=== PATIENT | female | born 1945 | race Caucasian/White ===

== ENCOUNTER → 2021-04-07 11:16 | Outpatient (CLI) | payer MEDICARE, SELFPAY ==
--- NOTE | ~2021-04-07 | XR_ITS ---
EXAMINATION: XR chest 2V EXAM DATE: 04/07/2021 11:35 INDICATION: R06.02 - Shortness of breath x 1 mo; hx of HTN. TECHNIQUE: Frontal and lateral projections of the chest obtained and reviewed. There is no prior mark dy for comparison. FINDINGS: There is moderate chronic hyperinflation. No confluent consolidation, pneumothorax or pleu ral effusion suspected. Cardiomediastinal silhouette is normal. There are mild bony degenerative changes. IMPRESSION: Mild hyperinflation. Reviewed, dictated and finalized at location A. IMPRESSION: Mild hyperinflation.
== END ==
PROVIDERS: PCP Family Medicine; Visit Provider Family Medicine
DX: R06.02 Shortness of breath (principal); R91.8 Other nonspecific abnormal finding of lung field
CPT/HCPCS: 71046

== ENCOUNTER 2021-06-06 00:18 | Day surgery (SDC) | payer MEDICARE, SELFPAY ==
[2021-05-20 08:40] VITALS: BMI 39.2
--- NOTE | 2021-06-01 17:18 | PM.HPGS ---
History of Present Illness History of Present Illness Consent: Risks, benefits, and alternatives have been discussed and questions answered. Patient agrees to proceed with procedure. Chief complaint: melena Narrative: Kayla Barbosa is a 75 year old female referred for colon cancer screening. is stool Hemoccult was done that was positive Review of Systems Review of Systems: All systems reviewed & are unremarkable except as noted in HPI and below PMFSH Past Medical History Medical History Bleeding hemorrhoid Body mass index (BMI) 40.0-44.9, adult Body mass index 45.0-49.9, adult Morbid (severe) obesity due to excess calories Other chronic pain Surgical History Surgical History H/O thyroidectomy History of total knee arthroplasty Family History Family History Sibling Family history of suicide Family history of type 2 diabetes mellitus Family history of renal failure Patient's sister is , Onset Age: 65 Patient's brother is Patient's brother is in good health Father Family history of chronic obstructive pulmonary disease Mother Family history of malignant neoplasm of ovary Other Diabetes mellitus Family history of arthritis Family history of blood dyscrasia Family history of cardiovascular disease Family history of kidney disease Family history of malignant neoplasm Hypertension Social History Social History Smoking status: Never smoker Second hand tobacco smoke exposure: No Alcohol intake: never Living arrangements: alone Spiritual care concerns: No Meds Home Medications and Allergies Home Medications Medication Instructions Recorded Confirmed Type diclofenac sodium 1 % topical gel See Rx Instructions .ROUTE 02/02/20 05/20/21 Rx .COMPLEX #100 gm losartan 100 mg tablet 100 mg PO DAILY #90 tablet 06/16/20 05/20/21 Rx triamterene 37.5 1 tablet PO QAM #90 tablet 06/16/20 05/20/21 Rx mg-hydrochlorothiazide 25 mg tablet mometasone 50 mcg/actuation nasal 2 spray NASAL DAILY #51 gm 12/13/20 05/20/21 Rx spray simvastatin 40 mg tablet 40 mg PO DAILY #90 tablet 01/04/21 05/20/21 Rx cetirizine 10 mg tablet 10 mg PO DAILY PRN #90 tablet 03/10/21 05/20/21 Rx levothyroxine 137 mcg tablet 137 mcg PO DAILY #90 tablet 04/22/21 05/20/21 Rx ascorbic acid (vitamin C) 500 mg PO DAILY 05/20/21 05/20/21 History lansoprazole 30 mg PO DAILY 05/20/21 05/20/21 History multivit with min-folic acid 1 tablet PO DAILY 05/20/21 05/20/21 History [Adult One Daily Multivitamin] vitamin B complex 1 tablet PO DAILY 05/20/21 05/20/21 History tramadol 50 mg tablet 50 mg PO Q6H PRN #60 tablet 05/24/21 Rx duloxetine 30 mg capsule,delayed 30 mg PO DAILY #30 cap 05/26/21 Rx release Allergies Allergy/AdvReac Type Severity Reaction Status Date / Time CJ Inhibitors AdvReac Intermediate cough Verified 06/06/21 08:15 cortisone AdvReac Mild hot flush Verified 06/06/21 08:15 prednisone AdvReac Mild Agitated Verified 06/06/21 08:15 Exam Const: General: alert Orientation/consciousness: patient oriented x3 Resp: Auscultation: clear to auscultation bilaterally Cardio: Rhythm: regular rhythm GI: GI Palp: Yes Soft to palpation and No Tenderness to palpation present (GI) Neuro: General: patient oriented x3 Assessment and Plan Assessment and plan (1) Colon cancer screening: Code(s): Z12.11 - Encounter for screening for malignant neoplasm of colon Status: Acute Assessment and Plan: Colonoscopy with possible biopsy or polypectomy or cautery or injection of substances.
[2021-06-06 08:18] VITALS: BP 150/60; PULSE 89; RESP 20; TEMP 36.6; O2SAT 98
--- NOTE | 2021-06-06 08:24 | WPDANESEPPF ---
Anes - Initial Pre Proc Eval Procedure: Operation Date: 06/06/21 09:00 Proposed Procedures p Colonoscopy - Julius Bliss MD Date/Time: 06/06/21 08:24 Surgeon: Julius Bliss MD Pre Op Diagnosis: melena Patient Data Age: 75 Gender: F Height: 1.65 m Weight: 107.2 kg Last Vital Signs Temp 36.6 C 06/06/21 08:18 Pulse 89 06/06/21 08:18 Resp 20 06/06/21 08:18 BP 150/60 H 06/06/21 08:18 Pulse Ox 98 06/06/21 08:18 Allergies Allergy/AdvReac Type Severity Reaction Status Date / Time CJ Inhibitors AdvReac Intermediate cough Verified 06/06/21 08:15 cortisone AdvReac Mild hot flush Verified 06/06/21 08:15 prednisone AdvReac Mild Agitated Verified 06/06/21 08:15 Home Medications Medication Instructions Recorded Confirmed Type diclofenac sodium 1 % topical gel See Rx Instructions .ROUTE 02/02/20 05/20/21 Rx .COMPLEX #100 gm losartan 100 mg tablet 100 mg PO DAILY #90 tablet 06/16/20 05/20/21 Rx triamterene 37.5 1 tablet PO QAM #90 tablet 06/16/20 05/20/21 Rx mg-hydrochlorothiazide 25 mg tablet mometasone 50 mcg/actuation nasal 2 spray NASAL DAILY #51 gm 12/13/20 05/20/21 Rx spray simvastatin 40 mg tablet 40 mg PO DAILY #90 tablet 01/04/21 05/20/21 Rx cetirizine 10 mg tablet 10 mg PO DAILY PRN #90 tablet 03/10/21 05/20/21 Rx levothyroxine 137 mcg tablet 137 mcg PO DAILY #90 tablet 04/22/21 05/20/21 Rx ascorbic acid (vitamin C) 500 mg PO DAILY 05/20/21 05/20/21 History lansoprazole 30 mg PO DAILY 05/20/21 05/20/21 History multivit with min-folic acid 1 tablet PO DAILY 05/20/21 05/20/21 History [Adult One Daily Multivitamin] vitamin B complex 1 tablet PO DAILY 05/20/21 05/20/21 History tramadol 50 mg tablet 50 mg PO Q6H PRN #60 tablet 05/24/21 Rx duloxetine 30 mg capsule,delayed 30 mg PO DAILY #30 cap 05/26/21 Rx release Patient hx anesthesia problems: none Family hx anesthesia problems: none Results Review: All pre-operative results and documents have been reviewed as part of the pre-operative evaluation. [facility] Past Medical History Medical History (Updated 06/01/21 @ 17:19 by Julius Bliss MD) Bleeding hemorrhoid Body mass index (BMI) 40.0-44.9, adult Body mass index 45.0-49.9, adult Morbid (severe) obesity due to excess calories Other chronic pain Surgical History Surgical History (Updated 06/06/21 @ 08:25 by Matty Nick MD) H/O thyroidectomy History of total knee arthroplasty Family History Family History Sibling Family history of suicide Family history of type 2 diabetes mellitus Family history of renal failure Patient's sister is , Onset Age: 65 Patient's brother is Patient's brother is in good health Father Family history of chronic obstructive pulmonary disease Mother Family history of malignant neoplasm of ovary Other Diabetes mellitus Family history of arthritis Family history of blood dyscrasia Family history of cardiovascular disease Family history of kidney disease Family history of malignant neoplasm Hypertension Social History Social History Smoking status: Never smoker Second hand tobacco smoke exposure: No Alcohol intake: never Living arrangements: alone Spiritual care concerns: No Anes - Eval Final PreProcedure Day of Procedure 06/06/21 08:24 Patient weight: obese Heart: regular rate and rhythm Lungs: clear to auscultation Airway: Mallampati scale class II Neurological: alert and oriented Last oral intake: >/= 8 hours ASA classification: III Emergent: no Anesthetic plan: proceed Anesthesia type and monitoring: general GIVS and standard monitoring Results Review: All pre-operative results and documents have been reviewed as part of the pre-operative evaluation. Informed Consent: The patient's anesthetic plan and its attendant risks and benefits were discussed with the blanca
[2021-06-06] MEDS: LACTATED RINGERS 1,000 ML 150 ML IV CONT (08:31)
[2021-06-06 09:11] VITALS: BP 107/60; PULSE 84; RESP 16; O2SAT 98
[2021-06-06 09:21] VITALS: BP 136/60; PULSE 64; RESP 21; O2SAT 98
[2021-06-06 09:31] VITALS: BP 131/71; PULSE 65; RESP 20; O2SAT 100
== END 2021-06-06 09:49 | disposition home or self-care (01) ==
PROVIDERS: PCP Family Medicine; Visit Provider Internal Medicine Gastroenterology
PROC: 0DJD8ZZ Inspection of Lower Intestinal Tract, Via Natural or Artificial Opening Endoscopic (ICD-10-PCS; CPT 45378; principal; 2021-06-06 09:00)
DX: R19.5 Other fecal abnormalities (principal); D12.2 Benign neoplasm of ascending colon; K57.30 Diverticulosis of large intestine without perforation or abscess without bleeding; K64.8 Other hemorrhoids; K64.4 Residual hemorrhoidal skin tags; E03.9 Hypothyroidism, unspecified; E66.9 Obesity, unspecified; Z68.39 Body mass index [BMI] 39.0-39.9, adult
CPT/HCPCS: 45380; 88305; J2704; J7120

== ENCOUNTER 2022-04-24 11:16 | Outpatient (CLI) | payer MEDICARE, SELFPAY ==
[2022-04-24 18:46] LABS: Alanine Aminotransferase 23 U/L (6-35); Alkaline Phosphatase 102 U/L (38-126); Anion Gap 9 mmol/L (8-16); Aspartate Amino Transferase 38 U/L (14-36); Bilirubin,Total 0.4 mg/dL (0.2-1.3); Blood Urea Nitrogen 21 mg/dL (7-17); Calcium 8.3 mg/dL (8.4-10.2); Carbon Dioxide 28 mmol/L (22-30); Chloride 97 mmol/L (98-107); Cholesterol 146 mg/dL (0-200); Estimated Glomerular Filt Rate > 60; Glucose 115 mg/dL (65-110); HDL Direct 41 mg/dL; Potassium 4.3 mmol/L (3.4-5.0); Sodium 134 mmol/L (137-145); Triglycerides 89 mg/dL (<150)
[2022-04-24 19:11] LABS: Hemoglobin A1C 5.8 % (<5.7)
[2022-04-24 19:36] LABS: LDL Cholesterol Direct 72 mg/dL
[2022-04-24 20:00] LABS: Thyroid Stimulating Hormone Reflex 0.854 uIU/mL (0.465-4.68)
== END 2022-04-24 11:17 | disposition home or self-care (01) ==
LOC: ANHGOSHLAB 11:18
PROVIDERS: PCP Family Medicine; Visit Provider Family Medicine
DX: E78.5 Hyperlipidemia, unspecified (principal); E03.9 Hypothyroidism, unspecified; R73.01 Impaired fasting glucose; I10 Essential (primary) hypertension
CPT/HCPCS: 36415; 80053; 80061; 83036; 84443

== ENCOUNTER 2022-09-14 06:22 | Inpatient (IN) | payer MEDICARE, SELFPAY ==
[2022-09-14] VITALS (8 sets, daily range): BP systolic 118–182; BP diastolic 46–78; PULSE 67–98; RESP 14–20; TEMP 36.2–36.8; O2SAT 95–99; BMI 40.6
--- NOTE | ~2022-09-14 | XR_ITS ---
[XR ribs LT 2V w CXR 2V ] INDICATION: Left rib pain after fall TECHNIQUE: Frontal projection of the upper left ribs, frontal projection of the lower left ribs, obli que projection of all the left ribs, frontal inspiratory chest x-ray for interpretation. FINDINGS: There are no displaced rib fractures identified. There are no soft tissue abnormality see n. The lungs are clear. IMPRESSION: 1:No acute displaced rib fractures. Reviewed, dictated and finalized at location L.
--- NOTE | ~2022-09-14 | XR_ITS ---
XR hip LT min 3V w AP pelvis 09/14/2022 10:54 Indication: Status post fall. Hip pain. Procedure: AP pelvis and 3 views left hip Comparison: No prior studies for comparison. Findings: No acute fracture, subluxation or dislocation. Pelvic rings are intact. There is residual c ontrast in the renal collecting systems, ureters and bladder. No significant soft tissue abnormality. Mild lumbar spondylosis. Impression: 1: No acute fracture. Reviewed, dictated and finalized at location L. Impression: 1: No acute fracture.
--- NOTE | ~2022-09-14 | CT_ITS ---
EXAMINATION: CT abdomen pelvis w con DATE: 09/14/2022 09:25 INDICATION: Low abdominal pain. TECHNIQUE: Computed tomography (CT) of the abdomen and pelvis was performed with 100 mL Omnipaque 350 intravenous contrast. Automated exposure control and iterative reconstruction technique were employe d. The dose-length product was 1314.51 mGy-cm. COMPARISON: None. FINDINGS: The visualized portions of the lung bases demonstrate mild atelectasis. A calcified right l bianca nodule and calcified paraesophageal lymph node are consistent with old granulomatous disease. No pleural effusion. The heart size is normal. No pericardial effusion. The liver and gallbladder are no rmal. Calcifications in the spleen are consistent with old granulomatous disease. There is a small sl iding hiatal hernia. The pancreas and adrenal glands are normal. There is cortical thinning of the ki dneys. There is no urolithiasis. There is diverticulosis of the colon without evidence of diverticuli tis. There are no dilated loops of bowel. The appendix is normal. There are no pathologically enlarge d lymph nodes. There is no free intraperitoneal fluid. There is severe thoracic and lumbar spondylosi s. IMPRESSION: 1. Small sliding hiatal hernia. Reviewed, dictated and finalized at location A.
--- NOTE | 2022-09-14 07:17 | ED.ABDPAIN ---
HPI - Abdominal Pain General Chief Complaint: Abdominal Pain Stated Complaint: abd pain Time Seen by Provider: 09/14/22 07:16 Source: patient and family History of Present Illness HPI narrative: Patient presents with left groin pain that started last night after getting out of bed to go to the bathroom, sharp stabbing pain. Worse with movement, better laying still. Patient had a fall 6 days ago, her foot got caught in a rug and fell on the right side of her body, still complaining of right ribs pain. Denies any headache, neck pain or back pain or other injuries. Patient is not on aspirin or any blood thinner. History of peptic ulcer disease years ago and her main complaint at this time is left groin pain. Related Data Home Medications Medication Instructions Recorded Confirmed ascorbic acid (vitamin C) 500 mg 500 mg PO DAILY 05/20/21 06/16/22 tablet multivitamin with minerals-folic 1 tablet PO DAILY 05/20/21 06/16/22 acid 0.4 mg tablet vitamin B complex 1 tablet PO DAILY 05/20/21 06/16/22 magnesium 250 mg tablet 250 mg PO DAILY 04/24/22 06/16/22 Allergies Allergy/AdvReac Type Severity Reaction Status Date / Time CJ Inhibitors AdvReac Intermediate cough Verified 09/14/22 07:26 cortisone AdvReac Mild hot flush Verified 09/14/22 07:26 prednisone AdvReac Mild Agitated Verified 09/14/22 07:26 Review of Systems Review of Systems: All systems reviewed & are unremarkable except as noted in HPI and below PMFSH Past Medical History Medical History Bleeding hemorrhoid Body mass index (BMI) 40.0-44.9, adult Body mass index 45.0-49.9, adult Morbid (severe) obesity due to excess calories Other chronic pain Surgical History Surgical History H/O thyroidectomy History of total knee arthroplasty Family History Family History Sibling Family history of suicide Family history of type 2 diabetes mellitus Family history of renal failure Patient's sister is , Onset Age: 65 Patient's brother is Patient's brother is in good health Father Family history of chronic obstructive pulmonary disease Mother Family history of malignant neoplasm of ovary Other Diabetes mellitus Family history of arthritis Family history of blood dyscrasia Family history of cardiovascular disease Family history of kidney disease Family history of malignant neoplasm Hypertension Social History Social History Smoking status: Never smoker Second hand tobacco smoke exposure: No Alcohol intake: never Lack of Transportation: No Lack of Food: Never True Current Housing: I Have Housing Concerned About Future Housing: No Difficulty Paying Gas/Electric Bills: No Difficulty Paying for Meds: No Currently Unemployed: No Difficulty w/ Childcare or Family Care: No Living arrangements: alone Spiritual care concerns: No Exam Narrative: General appearance: Well-developed, well-nourished Skin: Pale Head: Normocephalic, nontraumatic Eyes: Clear conjunctiva ENT: Oropharynx normal, ears normal, nose normal Neck: Supple, nontender Chest and respiratory: Airway patent, no respiratory distress, no accessory muscle use mild tenderness right lower ribs mid axillary line, no bruises, no swelling or rash Heart: Regular rate/rhythm Abdomen: Soft, nontender, no organomegaly, quiet bowel sounds Vascular: Normal peripheral pulses, normal capillary refill. Musculoskeletal: Slight limited range of motion of left hip, no bruises, no deformity or rash. Neurologic: Alert and oriented ?3, [employer] is normal as tested, no gross motor deficit
[2022-09-14] MEDS: SODIUM CHLORIDE 0.9% IV 1,000 ML 999 ML IV CONT ×2 (07:39→11:01)
[2022-09-14] MEDS: ONDANSETRON INJ 4 MG/2 ML VIAL IV PUSH (07:40)
[2022-09-14] MEDS: HYDROmorphone HCL INJ (*CRX) 1 MG/ML SYR 0.5 MG IV PUSH (07:40)
[2022-09-14 07:42] LABS: Basophils Absolute Auto 0.1 K/mm3 (0.0-0.1); Basophils Percent Auto 0.7 % (0.2-1.2); Eosinophils Absolute Auto 0.4 K/mm3 (0-0.3); Eosinophils Percent Auto 4.5 % (0-4.4); Hematocrit 27.1 % (37.0-47.0); Hemoglobin 7.7 g/dL (12.0-15.0); Immature Granulocyte Absolute 0.05 K/mm3 (0.00-0.031); Immature Granulocyte Percent A 0.5 % (0-0.5); Lymphocytes Absolute Auto 1.53 K/mm3 (0.9-3.2); Lymphocytes Percent Auto 15.8 % (18.3-44.2); Mean Corpuscular HGB Conc 28.4 g/dl (32-36); Mean Corpuscular Volume 66.7 fl (80-100); Mean Platelet Volume 9.7 fl (7.4-10.4); Monocytes Absolute Auto 0.9 K/mm3 (0.1-0.6); Neutrophils Absolute Auto 6.7 K/mm3 (1.3-6.7); Neutrophils Percent Auto 69.5 % (45.5-73.1); Platelet Count Result 413 k/mm3 (150-375); Red Blood Count 4.06 M/mm3 (4.2-5.4); Red Cell Distribution Width 17.8 % (11.5-14.5); White Blood Count 9.7 K/mm3 (4.5-10.0)
[2022-09-14 07:51] LABS: Alanine Aminotransferase 22 U/L (6-35); Albumin Level 4.2 g/dL (3.5-5.1); Alkaline Phosphatase 111 U/L (38-126); Anion Gap 9 mmol/L (8-16); Aspartate Amino Transferase 28 U/L (14-36); Bilirubin,Total 0.5 mg/dL (0.2-1.3); Blood Urea Nitrogen 16 mg/dL (7-17); Carbon Dioxide 24 mmol/L (22-30); Chloride 92 mmol/L (98-107); Estimated CRCL calculation 68 ml/min; Estimated Glomerular Filt Rate > 60; Glucose 115 mg/dL (65-110); Lipase 90 U/L (23-300); Potassium 4.3 mmol/L (3.4-5.0); Sodium 125 mmol/L (137-145)
--- NOTE | 2022-09-14 08:05 | PC.NURSE ---
pt attempted to provide urine sample but unsuccessful. pt declining straight cath. pt will try again after IV fluids.
[2022-09-14 08:16] LABS: Anisocytosis 1+ (NORMAL); Hypochromasia 2+ (NORMAL); Ovalocytes 1+ (NORMAL); Platelet Estimate Increased (Adequate)
[2022-09-14 08:18] LABS: Schistocytes None Seen (NORMAL)
[2022-09-14 10:04] LABS: Appearance Urine Clear (Clear); Bilirubin Urine Negative (Negative); Blood Urine Negative (Negative); Color Urine Yellow (Yellow); Glucose Urine UA Negative (Negative); Ketones Urine Negative (Negative); Leukocyte Esterase Ur Negative LEU/UL (Negative); Nitrate Urine Negative (Negative); Protein Urine Negative (Negative); Urobilinogen Urine 0.2 mg/dL (<2.0); pH Urine 7.5 (5.0-9.0)
[2022-09-14 10:20] LABS: Add Urine Microscopic? NO; Specific Grav Ur 1.039 (1.001-1.035)
--- NOTE | 2022-09-14 12:46 | ADMGEN ---
This patient, Kayla Barbosa, was admitted to [facility] Surg Room 317-02. Patient/family oriented to hospital policies and general routines including ID bracelet, bed and alarms, visiting hours, pain management, procedures, bathroom and other care routines, personal items, smoking policy, room service/diet, and visiting hours. Information on how to activate the Rapid Response Team has been discussed. Patient/Family are encouraged to report perceived risks to care and to ask questions if they do not understand what they are told or what they should do.
--- NOTE | 2022-09-14 13:00 | PM.IMHP ---
H&P: HPI History of Present Illness Date/Time: 09/14/22 13:00 Chief Complaint: Abdominal pain. Narrative: This is a very pleasant 76-year-old female with history of Helicobacter pylori and peptic ulcers in the 1970s, GERD, hypertension, hyperlipidemia, and hypothyroidism who presented to the emergency department from home for evaluation of abdominal pain. Patient provides the following history. About 6 days ago she got her foot caught up in a rug and fell down onto the right side of her body. She reports some mild discomfort over the right rib cage since that time but nothing significant. Yesterday afternoon she noticed some discomfort in the left groin which seemed to worsen over the course of the day. It was not significant enough for her to take analgesics however and she seemed to sleep okay. When she got up this morning however she had a sharp, stabbing pain in the left groin which was worse with movement. She has essentially no pain if sitting or lying still. Heat provided no help. She does not think the pain is related to the fall 6 days ago. She denies abdominal pain, epigastric pain, belching, bloating, nausea, vomiting, diarrhea, constipation, dysuria, and hematuria. Imaging in the ED including a grafts of the ribs, chest, hip, pelvis, and CT of the abdomen and pelvis were without acute findings. Incidentally she had abnormal labs which prompted her admission today including a microcytic anemia and a sodium of 125. With further questioning she does have a history of anemia and it looks like she had endoscopies which showed no evidence of bleeding. She is not on iron supplementation at home. She has been feeling short of breath with exertion recently but she was told that she likely had asthma and she was started on Symbicort. Regarding the low sodium, she has no known history of such. She has been on triamterene-hydrochlorothiazide for many years and has not had any adjustments in that dosing. She was started on oxybutynin recently and she has noticed that she is more thirsty since that time. She has a habit of chewing ice, does so frequently, and that is not changed. She denies epistaxis, hemoptysis, hematemesis, melena, hematochezia, and hematuria. She has not had any episodes of confusion, vertigo, or nausea. Weight has remained stable. Review of Systems Review of Systems: Twelve systems were reviewed and are negative except for as per HPI. [facility] Past Medical History Medical History (Updated 09/14/22 @ 19:55 by Tanja Dong PA-C) Arthritis Depression Gastroesophageal reflux disease Helicobacter pylori (H. pylori) 1970s Hyperlipidemia Hypertension Hypothyroidism Morbid obesity Peptic ulcer 1970s Urinary incontinence in female Surgical History Surgical History History of arthroplasty of left knee (11/30/15) History of arthroplasty of right knee (04/11/16) History of arthroscopy of left knee (2003) History of cataract extraction History of colonoscopy with polypectomy (06/2021) Per Dr. Bliss for evaluation of Hemoccult-positive stool. Notable findings include benign colon polyps, diverticulosis, and internal and external hemorrhoids. History of dilation and curettage History of partial thyroidectomy History of tubal ligation Family History Family History Sibling Family history of suicide Family history of type 2 diabetes mellitus Family history of renal failure Patient's sister is , Onset Age: 65 Patient's brother is Patient's brother is in good health Father Family history of chronic obstructive pulmonary disease Mother Family history of malignant neoplasm of ovary Other Diabetes mellitus Family history of arthritis Family history of blood dyscrasia Family history of cardiovascular disease Family history of kidney disease Family history of malignant neoplasm Hyperten
[2022-09-14 13:49] LABS: Hematocrit 26.9 % (37.0-47.0); Hemoglobin 7.4 g/dL (12.0-15.0)
[2022-09-14 14:10] LABS: Anion Gap 8 mmol/L (8-16); Blood Urea Nitrogen 13 mg/dL (7-17); Calcium 7.5 mg/dL (8.4-10.2); Carbon Dioxide 23 mmol/L (22-30); Chloride 93 mmol/L (98-107); Estimated CRCL calculation 81 ml/min; Estimated Glomerular Filt Rate > 60; Glucose 106 mg/dL (65-110); Potassium 4.4 mmol/L (3.4-5.0); Sodium 124 mmol/L (137-145)
[2022-09-14] MEDS: SODIUM CHLORIDE 0.9% IV 1,000 ML 100 ML IV CONT (14:15)
[2022-09-14 14:51] LABS: Iron 13 ug/dL (37-170)
[2022-09-14 15:01] LABS: Percent Iron Saturation 3 % (20-50)
[2022-09-14 15:18] LABS: Folic Acid > 20.0 ng/mL (2.76->20)
[2022-09-14 15:23] LABS: Thyroid Stimulating Hormone Reflex 0.628 uIU/mL (0.465-4.68)
[2022-09-14 15:27] LABS: Ferritin 5.75 ng/mL (11.1-264)
[2022-09-14 17:15] LABS: Urea Random Urine 161 MG/DL
[2022-09-14 17:18] LABS: Sodium Urine Random 54 meq/L
[2022-09-14] MEDS: FLUTICASONE/SALMETEROL 115-21 MCG INHALER 1 PUFF 2 PUFF INHALATION (20:24)
[2022-09-14] MEDS: traMADol HCL (*CRX) 50 MG TABLET PO (21:52)
[2022-09-14] MEDS: MELATONIN 5 MG TABLET PO (21:56)
[2022-09-15] VITALS (18 sets, daily range): BP systolic 116–169; BP diastolic 40–93; PULSE 52–90; RESP 14–20; TEMP 36.1–36.5; O2SAT 93–99
[2022-09-15 00:31] LABS: Hemoglobin 7.9 g/dL (12.0-15.0)
[2022-09-15 01:28] LABS: Hematocrit 23.8 % (37.0-47.0)
[2022-09-15 01:33] LABS: Hemoglobin 6.7 g/dL (12.0-15.0)
[2022-09-15 01:47] LABS: Sodium 128 mmol/L (137-145)
[2022-09-15 03:20] LABS: Hematocrit 23.2 % (37.0-47.0)
[2022-09-15 03:31] LABS: Hemoglobin 6.6 g/dL (12.0-15.0)
[2022-09-15 04:08] LABS: Hematocrit 23.4 % (37.0-47.0); Mean Corpuscular HGB Conc 28.6 g/dl (32-36); Mean Corpuscular Hemoglobin 18.9 pg (26-34); Mean Corpuscular Volume 66.1 fl (80-100); Mean Platelet Volume 9.5 fl (7.4-10.4); Platelet Count Result 359 k/mm3 (150-375); Red Blood Count 3.54 M/mm3 (4.2-5.4); Red Cell Distribution Width 17.8 % (11.5-14.5); White Blood Count 7.8 K/mm3 (4.5-10.0)
[2022-09-15 04:13] LABS: Anion Gap 5 mmol/L (8-16); Blood Urea Nitrogen 12 mg/dL (7-17); Calcium 7.7 mg/dL (8.4-10.2); Carbon Dioxide 26 mmol/L (22-30); Chloride 98 mmol/L (98-107); Estimated CRCL calculation 71 ml/min; Estimated Glomerular Filt Rate > 60; Glucose 114 mg/dL (65-110); Potassium 4.3 mmol/L (3.4-5.0); Sodium 129 mmol/L (137-145)
[2022-09-15 04:38] LABS: Hemoglobin 6.7 g/dL (12.0-15.0)
[2022-09-15] MEDS: LEVOTHYROXINE SODIUM 25 MCG TABLET PO (05:34)
[2022-09-15] MEDS: LEVOTHYROXINE SODIUM 112 MCG TABLET PO (05:34)
--- NOTE | 2022-09-15 06:28 | PC.NURSE ---
At 04:02 on 09/15/2022 patient refuses blood and signs a no blood document on a hemoglobin of 6.6-6.7. Charge nurse, Melba Gutiérrez, and physician, Dr. Guzmán, made aware. Will continue to monitor.
--- NOTE | 2022-09-15 07:15 | P.PNIM_ITS ---
Progress Note: A&P Assessment and Plan (1) Hyponatremia: Code(s): E87.1 - Hypo-osmolality and hyponatremia Status: Acute Assessment and Plan: * Could be medication induced hyponatremia * Sodium on arrival was 125 * triamterene/hydrochlorothiazide on hold * TSH 0.628 * Urine urine sodium 54, urine creatinine 16.0, and urea 161 * 2 L of normal saline in the ED * repeat sodium this am is 129 * fluid restriction continued (2) Microcytic anemia: Code(s): D50.9 - Iron deficiency anemia, unspecified Status: Acute Assessment and Plan: * Current H/H 6.7/23.4 * Occult blood pending * One unit of PRBC ordered * Anemia labs indicate iron deficiency anemia * iron 13, TIBC 420,% saturation 3, ferritin 5.75, B12 919, folate greater than 20 * Ferrous sulfate 325mg PO BID * Consider iron infusion * Trend labs * transfuse as indicated (3) Left groin pain: Code(s): R10.32 - Left lower quadrant pain Status: Acute Assessment and Plan: * Seems to be musculoskeletal as she has had multiple falls * Reports pain is worse with getting up * Continue home tramadol (4) Hypertension: Code(s): I10 - Essential (primary) hypertension Status: Acute Assessment and Plan: * Current BP is 154/60 * Continue losartan * Continue to trend blood pressures * Adjust therapy as indicated (5) Gastroesophageal reflux disease: Code(s): K21.9 - Gastro-esophageal reflux disease without esophagitis Status: Acute Assessment and Plan: * No recent issues * History of H pylori and peptic ulcers as per HPI. * Continue pantoprazole (6) Hypothyroidism: Code(s): E03.9 - Hypothyroidism, unspecified Status: Acute Assessment and Plan: * Continue levothyroxine * TSH 0.628 (7) Frequent falls: Code(s): R29.6 - Repeated falls Status: Acute Assessment and Plan: * Multiple falls over the last few day * Could be related to hyponatremia * PT ordered * Replace sodium * H/H low today transfuse as indicated * Fall precautions Time Spent With Patient Time: 51 minutes Time with patient: Greater than 35 minutes Subjective Date/time seen: 09/15/22 07:15 Interval history: 09/15/2215 patient was lying in bed. Patient stated that she was having some pain in her left lower quadrant by her groin area. She stated that she rated about a 2/10. She also stated that she has had a cough lately that has been producing a thick merida sputum. She stated that it has gotten better. This morning labs showed anemia with a hemoglobin of 6.7 and hematocrit 23.4. She currently denies any chest pain, shortness a breath, nausea, vomiting, diarrhea, constipation, weakness or fatigue. She also stated that her last bowel movement yesterday. Sodium is better today at 129. Anemia labs did indicate iron deficiency anemia. 09/14/22? 13:00 This is a very pleasant 76-year-old female with history of Helicobacter pylori and peptic ulcers in the 1970s, GERD, hypertension, hyperlipidemia, and hypothyroidism who presented to the emergency department from home for evaluation of abdominal pain. Patient provides the following history. About 6 days ago she got her foot caught up in a rug and fell down onto the r
--- NOTE | 2022-09-15 07:15 | PM.IMPN ---
Progress Note: A&P Assessment and Plan (1) Hyponatremia: Code(s): E87.1 - Hypo-osmolality and hyponatremia Status: Acute Assessment and Plan: Could be medication induced hyponatremia Sodium on arrival was 125 triamterene/hydrochlorothiazide on hold TSH 0.628 Urine urine sodium 54, urine creatinine 16.0, and urea 161 2 L of normal saline in the ED repeat sodium this am is 129 fluid restriction continued (2) Microcytic anemia: Code(s): D50.9 - Iron deficiency anemia, unspecified Status: Acute Assessment and Plan: Current H/H 6.7/23.4 Occult blood pending One unit of PRBC ordered Anemia labs indicate iron deficiency anemia iron 13, TIBC 420,% saturation 3, ferritin 5.75, B12 919, folate greater than 20 Ferrous sulfate 325mg PO BID Consider iron infusion Trend labs transfuse as indicated (3) Left groin pain: Code(s): R10.32 - Left lower quadrant pain Status: Acute Assessment and Plan: Seems to be musculoskeletal as she has had multiple falls Reports pain is worse with getting up Continue home tramadol (4) Hypertension: Code(s): I10 - Essential (primary) hypertension Status: Acute Assessment and Plan: Current BP is 154/60 Continue losartan Continue to trend blood pressures Adjust therapy as indicated (5) Gastroesophageal reflux disease: Code(s): K21.9 - Gastro-esophageal reflux disease without esophagitis Status: Acute Assessment and Plan: No recent issues History of H pylori and peptic ulcers as per HPI. Continue pantoprazole (6) Hypothyroidism: Code(s): E03.9 - Hypothyroidism, unspecified Status: Acute Assessment and Plan: Continue levothyroxine TSH 0.628 (7) Frequent falls: Code(s): R29.6 - Repeated falls Status: Acute Assessment and Plan: Multiple falls over the last few day Could be related to hyponatremia PT ordered Replace sodium H/H low today transfuse as indicated Fall precautions Time Spent With Patient Time: 51 minutes Time with patient: Greater than 35 minutes Subjective Date/time seen: 09/15/22 07:15 Interval history: 09/15/22 0715 patient was lying in bed. Patient stated that she was having some pain in her left lower quadrant by her groin area. She stated that she rated about a 2/10. She also stated that she has had a cough lately that has been producing a thick merida sputum. She stated that it has gotten better. This morning labs showed anemia with a hemoglobin of 6.7 and hematocrit 23.4. She currently denies any chest pain, shortness a breath, nausea, vomiting, diarrhea, constipation, weakness or fatigue. She also stated that her last bowel movement yesterday. Sodium is better today at 129. Anemia labs did indicate iron deficiency anemia. 09/14/22? 13:00 This is a very pleasant 76-year-old female with history of Helicobacter pylori and peptic ulcers in the 1970s, GERD, hypertension, hyperlipidemia, and hypothyroidism who presented to the emergency department from home for evaluation of abdominal pain. Patient provides the following history. About 6 days ago she got her foot caught up in a rug and fell down onto the right side of her body. She reports some mild discomfort over the right rib cage since that time but nothing significant. Yesterday afternoon she noticed some discomfort in the left groin which seemed to worsen over the course of the day. It was not significant enough for her to take analgesics however and she seemed to sleep okay. When she got up this morning however she had a sharp, stabbing pain in the left groin which was worse with movement. She has essentially no pain if sitting or lying still. Heat provided no help. She does not think the pain is related to the fall 6 days ago. She denies abdominal pain, ep
[2022-09-15] MEDS: SIMVASTATIN 20 MG TABLET 40 MG PO (09:14)
[2022-09-15] MEDS: ASCORBIC ACID 500 MG TABLET PO (09:14)
[2022-09-15] MEDS: oxyBUTYnin CHLORIDE XL 5 MG TAB.ER.24 10 MG PO (09:14)
[2022-09-15] MEDS: THERAPEUTIC MULTIVITAMINS/MINERALS TAB (*BKC) 1 TABLET PO (09:14)
[2022-09-15] MEDS: FLUTICASONE PROPIONATE 0.05% NA SPR 16 GM BTL (*BKC) 2 SPRAY NASAL (09:15)
[2022-09-15] MEDS: VITAMIN B COMPLEX CAPSULE 1 CAP PO (09:15)
[2022-09-15] MEDS: DULoxetine HCL 30 MG CAPSULE.DR PO (09:15)
[2022-09-15] MEDS: PANTOPRAZOLE 40 MG TABLET PO (09:15)
[2022-09-15] MEDS: MAGNESIUM OXIDE 200 MG TABLET PO (09:15)
[2022-09-15] MEDS: LOSARTAN POTASSIUM 100 MG TABLET PO (09:15)
[2022-09-15] MEDS: FLUTICASONE/SALMETEROL 115-21 MCG INHALER 1 PUFF 2 PUFF INHALATION (09:16)
[2022-09-15] MEDS: FERROUS SULFATE 324 MG TABLET PO ×2 (09:25→17:25)
[2022-09-15] MEDS: DOCUSATE SODIUM 100 MG CAPSULE PO ×2 (09:25→20:16)
[2022-09-15] MEDS: polyethylene glycoL 3350 17 GM POWD.PACK PO (09:25)
[2022-09-15] MEDS: SODIUM CHLORIDE 0.9% IV 250 ML 30 ML IV CONT (10:00)
[2022-09-15 13:55] LABS: Hematocrit 29.9 % (37.0-47.0); Hemoglobin 8.6 g/dL (12.0-15.0)
[2022-09-15 14:02] LABS: Sodium 132 mmol/L (137-145)
[2022-09-15] MEDS: traMADol HCL (*CRX) 50 MG TABLET PO (20:16)
[2022-09-15] MEDS: MELATONIN 5 MG TABLET PO (20:16)
[2022-09-15 20:52] LABS: Sodium 130 mmol/L (137-145)
[2022-09-16] VITALS: PULSE 72
[2022-09-16 04:00] VITALS: PULSE 67
[2022-09-16 06:00] VITALS: BP 135/65; PULSE 72; RESP 16; TEMP 36.3; O2SAT 95
[2022-09-16] MEDS: LEVOTHYROXINE SODIUM 112 MCG TABLET PO (06:31)
[2022-09-16] MEDS: LEVOTHYROXINE SODIUM 25 MCG TABLET PO (06:31)
[2022-09-16 06:51] LABS: Basophils Percent Auto 0.5 % (0.2-1.2); Eosinophils Absolute Auto 0.4 K/mm3 (0-0.3); Eosinophils Percent Auto 4.7 % (0-4.4); Hematocrit 28.6 % (37.0-47.0); Hemoglobin 8.2 g/dL (12.0-15.0); Immature Granulocyte Absolute 0.04 K/mm3 (0.00-0.031); Immature Granulocyte Percent A 0.5 % (0-0.5); Lymphocytes Percent Auto 18.7 % (18.3-44.2); Mean Corpuscular HGB Conc 28.7 g/dl (32-36); Mean Corpuscular Hemoglobin 19.4 pg (26-34); Mean Corpuscular Volume 67.8 fl (80-100); Mean Platelet Volume 9.5 fl (7.4-10.4); Monocytes Absolute Auto 0.9 K/mm3 (0.1-0.6); Monocytes Percent Auto 10.8 % (2.6-8.5); Neutrophils Absolute Auto 5.2 K/mm3 (1.3-6.7); Neutrophils Percent Auto 64.8 % (45.5-73.1); Platelet Count Result 387 k/mm3 (150-375); Red Blood Count 4.22 M/mm3 (4.2-5.4); Red Cell Distribution Width 20.1 % (11.5-14.5)
[2022-09-16 07:08] LABS: Alanine Aminotransferase 22 U/L (6-35); Albumin Level 3.5 g/dL (3.5-5.1); Alkaline Phosphatase 89 U/L (38-126); Anion Gap 5 mmol/L (8-16); Aspartate Amino Transferase 34 U/L (14-36); Bilirubin,Total 0.5 mg/dL (0.2-1.3); Blood Urea Nitrogen 11 mg/dL (7-17); Calcium 7.6 mg/dL (8.4-10.2); Carbon Dioxide 28 mmol/L (22-30); Chloride 99 mmol/L (98-107); Estimated CRCL calculation 70 ml/min; Estimated Glomerular Filt Rate > 60; Glucose 107 mg/dL (65-110); Magnesium 2.3 mg/dL (1.6-2.3); Potassium 4.1 mmol/L (3.4-5.0); Sodium 132 mmol/L (137-145)
[2022-09-16 07:45] LABS: Anisocytosis 3+ (NORMAL); Hypochromasia 2+ (NORMAL); Microcytosis 2+ (NORMAL); Platelet Estimate Adequate (Adequate)
[2022-09-16 07:46] LABS: Schistocytes None Seen (NORMAL)
[2022-09-16 08:00] VITALS: PULSE 70
[2022-09-16 08:13] VITALS: PULSE 75; RESP 16; O2SAT 95
[2022-09-16] MEDS: FLUTICASONE/SALMETEROL 115-21 MCG INHALER 1 PUFF 2 PUFF INHALATION (08:13)
[2022-09-16] MEDS: FLUTICASONE PROPIONATE 0.05% NA SPR 16 GM BTL (*BKC) 2 SPRAY NASAL (08:38)
[2022-09-16] MEDS: PANTOPRAZOLE 40 MG TABLET PO (08:39)
[2022-09-16] MEDS: MAGNESIUM OXIDE 200 MG TABLET PO (08:39)
[2022-09-16] MEDS: VITAMIN B COMPLEX CAPSULE 1 CAP PO (08:39)
[2022-09-16] MEDS: DOCUSATE SODIUM 100 MG CAPSULE PO (08:39)
[2022-09-16] MEDS: polyethylene glycoL 3350 17 GM POWD.PACK PO (08:39)
[2022-09-16] MEDS: ASCORBIC ACID 500 MG TABLET PO (08:39)
[2022-09-16] MEDS: SIMVASTATIN 20 MG TABLET 40 MG PO (08:39)
[2022-09-16] MEDS: IRON SUCROSE COMPLEX 500 MG in SODIUM CHLORIDE 0.9% IV 250 ML 78.57 MG IVPB (08:39)
[2022-09-16] MEDS: DULoxetine HCL 30 MG CAPSULE.DR PO (08:39)
[2022-09-16] MEDS: FERROUS SULFATE 324 MG TABLET PO (08:39)
[2022-09-16] MEDS: THERAPEUTIC MULTIVITAMINS/MINERALS TAB (*BKC) 1 TABLET PO (08:39)
[2022-09-16] MEDS: oxyBUTYnin CHLORIDE XL 5 MG TAB.ER.24 10 MG PO (08:40)
[2022-09-16] MEDS: LOSARTAN POTASSIUM 100 MG TABLET PO (08:40)
--- NOTE | 2022-09-16 09:30 | PM.DS ---
DS: Admitting Diagnosis Discharge Date 09/16/22929 Admitting Diagnosis iron deficiency anemia, hyponatremia DS: Discharge Diagnosis Discharge Diagnosis (1) Hyponatremia: Code(s): E87.1 - Hypo-osmolality and hyponatremia Status: Acute Assessment and Plan: Could be medication induced hyponatremia Sodium on arrival was 125 triamterene/hydrochlorothiazide on hold TSH 0.628 Urine urine sodium 54, urine creatinine 16.0, and urea 161 2 L of normal saline in the ED repeat sodium this am is 132 fluid restriction continued (2) Microcytic anemia: Code(s): D50.9 - Iron deficiency anemia, unspecified Status: Acute Assessment and Plan: Current H/H 8.2/28.6 Hgb dropped as low as 6.7 Occult blood pending One unit of PRBC ordered Anemia labs indicate iron deficiency anemia iron 13, TIBC 420,% saturation 3, ferritin 5.75, B12 919, folate greater than 20 Ferrous sulfate 325mg PO BID, one dose of IV iron Consider iron infusion Trend labs transfuse as indicated (3) Left groin pain: Code(s): R10.32 - Left lower quadrant pain Status: Acute Assessment and Plan: Seems to be musculoskeletal as she has had multiple falls Reports pain is worse with getting up Continue home tramadol (4) Hypertension: Code(s): I10 - Essential (primary) hypertension Status: Acute Assessment and Plan: Current BP is 135/65 Continue losartan Continue to trend blood pressures Adjust therapy as indicated (5) Gastroesophageal reflux disease: Code(s): K21.9 - Gastro-esophageal reflux disease without esophagitis Status: Acute Assessment and Plan: No recent issues History of H pylori and peptic ulcers as per HPI. Continue pantoprazole (6) Hypothyroidism: Code(s): E03.9 - Hypothyroidism, unspecified Status: Acute Assessment and Plan: Continue levothyroxine TSH 0.628 (7) Frequent falls: Code(s): R29.6 - Repeated falls Status: Acute Assessment and Plan: Multiple falls over the last few day Could be related to hyponatremia PT ordered Replace sodium H/H low today transfuse as indicated Fall precautions DS: Summary Hospital Course Hospital Course: This is a very pleasant 76-year-old female with history of Helicobacter pylori and peptic ulcers in the 1970s, GERD, hypertension, hyperlipidemia, and hypothyroidism who presented to the emergency department from home for evaluation of abdominal pain. Patient reported a fall about 6 days ago. Upon arrival it was noted that the patient did have iron deficiency anemia. Hgb did get as low as 6.7. She was given one unit of PRBCs. Current H/H 8.2/28.6. She also had several xrays to evaluate pain from the falls. Xrays did not indicate any acute fractures. On admission she was also noted to be hyponatremic. Sodium was noted to be 125. Fluids were given and sodium has returned to a normal level. Current sodium 132. Labs and vital signs are stable. Patient is eager to go home. Educated patient of the signs and symptoms of anemia. Will have patient get repeat labs in one week. Status at Discharge Functional status at discharge: independent ambulation Overall status at discharge: patient is progressing back to baseline Time Spent with Patient Time attestation: Total time spent providing and/or coordinating discharge services: 48 minutes Time spent: Greater than 30 minutes Specific discharge activities: Diagnostic testing, chart review, developing a treatment plan, education, care coordination documentation, physical exam, result review Exam Narrative: General: well-nourished, well-appearing 76-year-old female, laying in bed, comfortable, NARD Neuro: awake, alert and oriented x4, speech clear, no focal neuro deficits noted HEENMT: normocephalic, atrau
--- NOTE | 2022-09-16 09:30 | P.DS_ITS ---
DS: Admitting Diagnosis Discharge Date 09/16/22929 Admitting Diagnosis iron deficiency anemia, hyponatremia DS: Discharge Diagnosis Discharge Diagnosis (1) Hyponatremia: Code(s): E87.1 - Hypo-osmolality and hyponatremia Status: Acute Assessment and Plan: * Could be medication induced hyponatremia * Sodium on arrival was 125 * triamterene/hydrochlorothiazide on hold * TSH 0.628 * Urine urine sodium 54, urine creatinine 16.0, and urea 161 * 2 L of normal saline in the ED * repeat sodium this am is 132 * fluid restriction continued (2) Microcytic anemia: Code(s): D50.9 - Iron deficiency anemia, unspecified Status: Acute Assessment and Plan: * Current H/H 8.2/28.6 * Hgb dropped as low as 6.7 * Occult blood pending * One unit of PRBC ordered * Anemia labs indicate iron deficiency anemia * iron 13, TIBC 420,% saturation 3, ferritin 5.75, B12 919, folate greater than 20 * Ferrous sulfate 325mg PO BID, one dose of IV iron * Consider iron infusion * Trend labs * transfuse as indicated (3) Left groin pain: Code(s): R10.32 - Left lower quadrant pain Status: Acute Assessment and Plan: * Seems to be musculoskeletal as she has had multiple falls * Reports pain is worse with getting up * Continue home tramadol (4) Hypertension: Code(s): I10 - Essential (primary) hypertension Status: Acute Assessment and Plan: * Current BP is 135/65 * Continue losartan * Continue to trend blood pressures * Adjust therapy as indicated (5) Gastroesophageal reflux disease: Code(s): K21.9 - Gastro-esophageal reflux disease without esophagitis Status: Acute Assessment and Plan: * No recent issues * History of H pylori and peptic ulcers as per HPI. * Continue pantoprazole (6) Hypothyroidism: Code(s): E03.9 - Hypothyroidism, unspecified Status: Acute Assessment and Plan: * Continue levothyroxine * TSH 0.628 (7) Frequent falls: Code(s): R29.6 - Repeated falls Status: Acute Assessment and Plan: * Multiple falls over the last few day * Could be related to hyponatremia * PT ordered * Replace sodium * H/H low today transfuse as indicated * Fall precautions DS: Summary Hospital Course Hospital Course: This is a very pleasant 76-year-old female with history of Helicobacter pylori and peptic ulcers in the 1970s, GERD, hypertension, hyperlipidemia, and hypothyroidism who presented to the emergency department from home for evaluation of abdominal pain. Patient reported a fall about 6 days ago. Upon arrival it was noted that the patient did have iron deficiency anemia. Hgb did get as low as 6.7. She was given one unit of PRBCs. Current H/H 8.2/28.6. She also had several xrays to evaluate pain from the falls. Xrays did not indicate any acute fractures. On admission she was also noted to be hyponatremic. Sodium was noted to be 125. Fluids were given and sodium has returned to a normal level. Current sodium 132. Labs and vital signs are stable. Patient is eager to go home. Educated patient of the signs and symptoms of anemia. Will have patient get repeat labs in one week. Status at Discharge Functional status at discharge: independent ambulation Overall status a
[2022-09-18 12:48] LABS: Osmolality, Urine 294 mOsm/kg (50-1200)
== END 2022-09-16 12:35 | disposition home or self-care (01) | DRG 641 ==
LOC: ANHED 11:24 → ANH3MEDSUR 12:21
PROVIDERS: Internal Medicine; Physician Assistant; Admitting Provider Hospitalist; Emergency Provider Emergency Medicine; PCP Family Medicine; Visit Provider Nurse Practitioner
DX: E87.1 Hypo-osmolality and hyponatremia (principal); D50.9 Iron deficiency anemia, unspecified; R10.32 Left lower quadrant pain; I10 Essential (primary) hypertension; K21.9 Gastro-esophageal reflux disease without esophagitis; E03.9 Hypothyroidism, unspecified; R29.6 Repeated falls; Z79.899 Other long term (current) drug therapy
CPT/HCPCS: 36415; 36430; 71046; 71100; 73502; 74177; 80048; 80053; 81003; 82570; 82607; 82728; 82746; 83540; 83550; 83690; 83735; 83930; 83935; 84295; 84300; 84443; 84540; 85014; 85018; 85025; 85027; 86850; 86900; 86901; 86920; 94640; 96361; 96365; 96366; 96374; 96375; 99285; A9270; G0378; J1170; J1756; J2405; J7030; J7050; P9016; Q9967

== ENCOUNTER 2022-09-19 13:37 | Emergency (ER) | payer MEDICARE, SELFPAY ==
[2022-09-19 13:55] VITALS: BP 165/74; PULSE 74; RESP 18; TEMP 36.2; O2SAT 100
--- NOTE | 2022-09-19 13:59 | ED.GENADULT ---
HPI - General Adult General Chief complaint: Skin/Abscess/Foreign Body Stated complaint: surgical site check Time Seen by Provider: 09/19/22 13:59 Source: patient Mode of arrival: ambulatory Limitations: no limitations History of Present Illness HPI narrative: 76 yo F presents with c/o pain and swelling to L wrist with redness. States symptoms getting progressively worse with increased pain to L wrist today. Afebrile. full ROM and distal NV intact. Pt had IV placed to L wirst area for blood transfusion. Was recently discharged. All systems reviewed and negative except as noted above. Related Data Home Medications Medication Instructions Recorded Confirmed ascorbic acid (vitamin C) 500 mg 500 mg PO DAILY 05/20/21 09/19/22 tablet multivitamin with minerals-folic 1 tablet PO DAILY 05/20/21 09/19/22 acid 0.4 mg tablet vitamin B complex 1 tablet PO DAILY 05/20/21 09/19/22 magnesium 250 mg tablet 250 mg PO DAILY 04/24/22 09/19/22 oxybutynin chloride 10 mg 10 mg PO QAM 09/14/22 09/19/22 tablet,extended release 24 hr Allergies Allergy/AdvReac Type Severity Reaction Status Date / Time CJ Inhibitors AdvReac Intermediate cough Verified 09/19/22 14:00 cortisone AdvReac Mild hot flush Verified 09/19/22 14:00 prednisone AdvReac Mild Agitated Verified 09/19/22 14:00 Review of Systems Review of Systems: CONSTITUTIONAL: Denies fever, chills, or sweats. EYES: Denies visual changes, redness, or discharge. ENT: Denies rhinorrhea, congestion, sore throat, or otalgia. CARDIOVASCULAR: Denies chest pain, palpitations, or edema. RESPIRATORY: Denies cough or dyspnea. GASTROINTESTINAL: Denies abdominal pain, nausea, vomiting, or diarrhea. GENITOURINARY: Denies dysuria or hematuria. SKIN: Denies rash or itching. Reports pain, redness and swelling to L wrist. MUSCULOSKELETAL: Denies back pain, joint pain, or myalgia. NEUROLOGIC: Denies headache, numbness, or weakness. PSYCHIATRIC: Denies anxiety or depression. All other systems reviewed are negative, except as documented in HPI. [facility] Past Medical History Medical History (Updated 09/19/22 @ 14:14 by Bernice Spicer NP) Arthritis Depression Gastroesophageal reflux disease Helicobacter pylori (H. pylori) 1970s Hyperlipidemia Hypertension Hypothyroidism Morbid obesity Peptic ulcer 1970s Urinary incontinence in female Surgical History Surgical History History of arthroplasty of left knee (11/30/15) History of arthroplasty of right knee (04/11/16) History of arthroscopy of left knee (2003) History of cataract extraction History of colonoscopy with polypectomy (06/2021) Per Dr. Bliss for evaluation of Hemoccult-positive stool. Notable findings include benign colon polyps, diverticulosis, and internal and external hemorrhoids. History of dilation and curettage History of partial thyroidectomy History of tubal ligation Family History Family History Sibling Family history of suicide Family history of type 2 diabetes mellitus Family history of renal failure Patient's sister is , Onset Age: 65 Patient's brother is Patient's brother is in good health Father Family history of chronic obstructive pulmonary disease Mother Family history of malignant neoplasm of ovary Other Diabetes mellitus Family history of arthritis Family history of blood dyscrasia Family history of cardiovascular disease Family history of kidney disease Family history of malignant neoplasm Hypertension Social History Social History Social History: Surrogate medical decision maker: Orestes Barbosa, son. Code status: Full code. Smoking status: Never smoker Second hand tobacco smoke exposure: No Alcohol intake: never Substance use: never Lack of Transportation: No Lack of Food:
== END 2022-09-19 14:16 | disposition home or self-care (01) ==
PROVIDERS: Emergency Provider Nurse Practitioner Family; PCP Family Medicine
DX: T80.29XA Infection following other infusion, transfusion and therapeutic injection, initial encounter (principal); M19.90 Unspecified osteoarthritis, unspecified site; K21.9 Gastro-esophageal reflux disease without esophagitis; E78.5 Hyperlipidemia, unspecified; I10 Essential (primary) hypertension; E03.9 Hypothyroidism, unspecified; E66.01 Morbid (severe) obesity due to excess calories; Z68.38 Body mass index [BMI] 38.0-38.9, adult; Z90.89 Acquired absence of other organs
CPT/HCPCS: 99213; G0463

== ENCOUNTER 2022-09-22 09:14 | Outpatient (CLI) | payer MEDICARE, SELFPAY ==
[2022-09-22 13:46] LABS: Basophils Absolute Auto 0.1 K/mm3 (0.0-0.1); Basophils Percent Auto 0.8 % (0.2-1.2); Eosinophils Absolute Auto 0.3 K/mm3 (0-0.3); Eosinophils Percent Auto 3.9 % (0-4.4); Immature Granulocyte Absolute 0.04 K/mm3 (0.00-0.031); Immature Granulocyte Percent A 0.5 % (0-0.5); Lymphocytes Absolute Auto 0.89 K/mm3 (0.9-3.2); Lymphocytes Percent Auto 11.1 % (18.3-44.2); Mean Corpuscular HGB Conc 28.6 g/dl (32-36); Mean Corpuscular Hemoglobin 21.4 pg (26-34); Mean Corpuscular Volume 74.8 fl (80-100); Mean Platelet Volume 9.9 fl (7.4-10.4); Monocytes Absolute Auto 0.7 K/mm3 (0.1-0.6); Monocytes Percent Auto 9.3 % (2.6-8.5); Neutrophils Percent Auto 74.4 % (45.5-73.1); Platelet Count Result 397 k/mm3 (150-375); Red Blood Count 4.68 M/mm3 (4.2-5.4); Red Cell Distribution Width 27.1 % (11.5-14.5)
[2022-09-22 14:12] LABS: Alanine Aminotransferase 25 U/L (6-35); Alkaline Phosphatase 104 U/L (38-126); Anion Gap 6 mmol/L (8-16); Aspartate Amino Transferase 42 U/L (14-36); Bilirubin,Total 0.5 mg/dL (0.2-1.3); Blood Urea Nitrogen 17 mg/dL (7-17); Carbon Dioxide 30 mmol/L (22-30); Chloride 94 mmol/L (98-107); Estimated Glomerular Filt Rate > 60; Glucose 112 mg/dL (65-110); Sodium 130 mmol/L (137-145)
[2022-09-22 14:40] LABS: Schistocytes None Seen (NORMAL)
[2022-09-22 14:41] LABS: Anisocytosis 3+ (NORMAL); Hypochromasia 1+ (NORMAL); Macrocytosis 2+ (NORMAL)
== END 2022-09-22 09:15 | disposition home or self-care (01) ==
LOC: ANHGOSHLAB 09:16
PROVIDERS: PCP Family Medicine; Visit Provider Nurse Practitioner
DX: D50.9 Iron deficiency anemia, unspecified (principal); E87.1 Hypo-osmolality and hyponatremia
CPT/HCPCS: 36415; 80053; 85025

== ENCOUNTER 2022-11-14 15:08 | Outpatient (CLI) | payer MEDICARE, SELFPAY ==
[2022-11-14 16:59] LABS: Alanine Aminotransferase 26 U/L (6-35); Albumin Level 4.1 g/dL (3.5-5.1); Alkaline Phosphatase 94 U/L (38-126); Anion Gap 7 mmol/L (8-16); Aspartate Amino Transferase 32 U/L (14-36); Bilirubin,Total 0.3 mg/dL (0.2-1.3); Blood Urea Nitrogen 29 mg/dL (7-17); Calcium 8.2 mg/dL (8.4-10.2); Carbon Dioxide 31 mmol/L (22-30); Chloride 101 mmol/L (98-107); Estimated Glomerular Filt Rate 54; Glucose 109 mg/dL (65-110); Potassium 4.6 mmol/L (3.4-5.0); Sodium 139 mmol/L (137-145)
[2022-11-14 17:35] LABS: Thyroid Stimulating Hormone Reflex 0.118 uIU/mL (0.465-4.68)
[2022-11-15 00:19] LABS: Total Triiodothyronine (T3) 1.72 NG/ML (0.97-1.69)
== END 2022-11-14 15:09 | disposition home or self-care (01) ==
PROVIDERS: PCP Family Medicine; Visit Provider Family Medicine
DX: E03.9 Hypothyroidism, unspecified (principal); Z13.228 Encounter for screening for other metabolic disorders; Z13.29 Encounter for screening for other suspected endocrine disorder
CPT/HCPCS: 36415; 80053; 84439; 84443; 84480

== ENCOUNTER 2023-02-13 11:42 | Outpatient (CLI) | payer MEDICARE, SELFPAY ==
[2023-02-13 13:00] LABS: Basophils Absolute Auto 0.1 K/mm3 (0.0-0.1); Basophils Percent Auto 0.7 % (0.2-1.2); Eosinophils Absolute Auto 0.3 K/mm3 (0-0.3); Eosinophils Percent Auto 3.5 % (0-4.4); Hematocrit 40.8 % (37.0-47.0); Hemoglobin 12.6 g/dL (12.0-15.0); Immature Granulocyte Absolute 0.04 K/mm3 (0.00-0.031); Immature Granulocyte Percent A 0.5 % (0-0.5); Lymphocytes Absolute Auto 1.32 K/mm3 (0.9-3.2); Lymphocytes Percent Auto 15.3 % (18.3-44.2); Mean Corpuscular HGB Conc 30.9 g/dl (32-36); Mean Corpuscular Hemoglobin 29.6 pg (26-34); Mean Corpuscular Volume 95.8 fl (80-100); Mean Platelet Volume 11.7 fl (7.4-10.4); Monocytes Absolute Auto 0.6 K/mm3 (0.1-0.6); Monocytes Percent Auto 7.3 % (2.6-8.5); Neutrophils Absolute Auto 6.3 K/mm3 (1.3-6.7); Neutrophils Percent Auto 72.7 % (45.5-73.1); Platelet Count Result 244 k/mm3 (150-375); Red Blood Count 4.26 M/mm3 (4.2-5.4); Red Cell Distribution Width 14.1 % (11.5-14.5); White Blood Count 8.6 K/mm3 (4.5-10.0)
[2023-02-13 20:05] LABS: Alanine Aminotransferase 25 U/L (6-35); Albumin Level 4.1 g/dL (3.5-5.1); Alkaline Phosphatase 97 U/L (38-126); Anion Gap 8 mmol/L (8-16); Aspartate Amino Transferase 50 U/L (14-36); Bilirubin,Total 0.4 mg/dL (0.2-1.3); Blood Urea Nitrogen 25 mg/dL (7-17); Calcium 8.4 mg/dL (8.4-10.2); Carbon Dioxide 27 mmol/L (22-30); Chloride 101 mmol/L (98-107); Estimated Glomerular Filt Rate 53; Glucose 102 mg/dL (65-110); Potassium 4.9 mmol/L (3.4-5.0); Sodium 136 mmol/L (137-145)
== END 2023-02-13 11:43 | disposition home or self-care (01) ==
PROVIDERS: PCP Family Medicine; Visit Provider Family Medicine
DX: Z13.228 Encounter for screening for other metabolic disorders (principal); R53.83 Other fatigue; E03.9 Hypothyroidism, unspecified
CPT/HCPCS: 36415; 80053; 84443; 85025

== ENCOUNTER 2023-04-09 13:21 | Outpatient (CLI) | payer MEDICARE, SELFPAY | END 2023-04-09 13:22 | disposition home or self-care (01) | LOC: ANHAUDIO 13:22 | PROVIDERS: PCP Family Medicine; Visit Provider Family Medicine | DX: H91.93 Unspecified hearing loss, bilateral (principal) | CPT/HCPCS: 92557; 92567 ==

== ENCOUNTER 2023-05-24 13:23 | Outpatient (CLI) | payer MEDICARE, SELFPAY ==
[2023-05-24 19:48] LABS: Basophils Absolute Auto 0.1 K/mm3 (0.0-0.1); Basophils Percent Auto 0.6 % (0.2-1.2); Eosinophils Absolute Auto 0.3 K/mm3 (0-0.3); Eosinophils Percent Auto 3.2 % (0-4.4); Hematocrit 37.5 % (37.0-47.0); Hemoglobin 11.2 g/dL (12.0-15.0); Immature Granulocyte Absolute 0.02 K/mm3 (0.00-0.031); Immature Granulocyte Percent A 0.2 % (0-0.5); Lymphocytes Absolute Auto 1.46 K/mm3 (0.9-3.2); Lymphocytes Percent Auto 15.7 % (18.3-44.2); Mean Corpuscular HGB Conc 29.9 g/dl (32-36); Mean Corpuscular Hemoglobin 29.1 pg (26-34); Mean Corpuscular Volume 97.4 fl (80-100); Mean Platelet Volume 10.9 fl (7.4-10.4); Monocytes Absolute Auto 0.6 K/mm3 (0.1-0.6); Monocytes Percent Auto 6.8 % (2.6-8.5); Neutrophils Absolute Auto 6.8 K/mm3 (1.3-6.7); Neutrophils Percent Auto 73.5 % (45.5-73.1); Platelet Count Result 286 k/mm3 (150-375); Red Blood Count 3.85 M/mm3 (4.2-5.4); Red Cell Distribution Width 13.5 % (11.5-14.5); White Blood Count 9.3 K/mm3 (4.5-10.0)
[2023-05-24 20:11] LABS: Hypochromasia 1+ (NORMAL); Ovalocytes 1+ (NORMAL); Platelet Estimate Adequate (Adequate); Schistocytes None Seen (NORMAL)
[2023-05-24 21:28] LABS: Iron 82 ug/dL (37-170)
[2023-05-24 21:37] LABS: Percent Iron Saturation 25 % (20-50)
== END 2023-05-24 13:24 | disposition home or self-care (01) ==
LOC: ANHGOSHLAB 13:26
PROVIDERS: PCP Family Medicine; Visit Provider Family Medicine
DX: D50.9 Iron deficiency anemia, unspecified (principal); R53.83 Other fatigue
CPT/HCPCS: 36415; 82728; 83540; 83550; 85025

== ENCOUNTER 2023-06-12 11:32 | Outpatient (CLI) | payer MEDICARE, SELFPAY ==
[2023-06-12 19:23] LABS: Alanine Aminotransferase 22 U/L (6-35); Albumin Level 3.9 g/dL (3.5-5.1); Alkaline Phosphatase 102 U/L (38-126); Anion Gap 6 mmol/L (8-16); Aspartate Amino Transferase 38 U/L (14-36); Bilirubin,Total 0.3 mg/dL (0.2-1.3); Blood Urea Nitrogen 26 mg/dL (7-17); Calcium 8.2 mg/dL (8.4-10.2); Carbon Dioxide 26 mmol/L (22-30); Chloride 102 mmol/L (98-107); Estimated Glomerular Filt Rate 53; Glucose 101 mg/dL (65-110); Potassium 4.9 mmol/L (3.4-5.0); Sodium 134 mmol/L (137-145)
[2023-06-12 20:15] LABS: Basophils Absolute Auto 0.1 K/mm3 (0.0-0.1); Basophils Percent Auto 0.7 % (0.2-1.2); Eosinophils Absolute Auto 0.3 K/mm3 (0-0.3); Eosinophils Percent Auto 3.1 % (0-4.4); Hematocrit 37.7 % (37.0-47.0); Hemoglobin 11.8 g/dL (12.0-15.0); Immature Granulocyte Absolute 0.04 K/mm3 (0.00-0.031); Immature Granulocyte Percent A 0.5 % (0-0.5); Lymphocytes Absolute Auto 1.22 K/mm3 (0.9-3.2); Mean Corpuscular HGB Conc 31.3 g/dl (32-36); Mean Corpuscular Hemoglobin 30.6 pg (26-34); Mean Corpuscular Volume 97.7 fl (80-100); Mean Platelet Volume 11.2 fl (7.4-10.4); Monocytes Absolute Auto 0.7 K/mm3 (0.1-0.6); Monocytes Percent Auto 8.4 % (2.6-8.5); Neutrophils Absolute Auto 6.4 K/mm3 (1.3-6.7); Neutrophils Percent Auto 73.3 % (45.5-73.1); Platelet Count Result 285 k/mm3 (150-375); Red Blood Count 3.86 M/mm3 (4.2-5.4); Red Cell Distribution Width 13.8 % (11.5-14.5); White Blood Count 8.7 K/mm3 (4.5-10.0)
== END 2023-06-12 11:33 | disposition home or self-care (01) ==
LOC: ANHGOSHLAB 11:34
PROVIDERS: PCP Family Medicine; Visit Provider Family Medicine
DX: D50.9 Iron deficiency anemia, unspecified (principal); R53.83 Other fatigue; Z13.228 Encounter for screening for other metabolic disorders
CPT/HCPCS: 36415; 80053; 82728; 85025

== ENCOUNTER 2023-06-20 08:36 | Outpatient (CLI) | payer MEDICARE, SELFPAY ==
--- NOTE | 2023-07-09 15:53 | WPDSLEEPSTUD ---
Sleep Study Date of Study: 06/20/23 Ordering Provider: Jeremy Santana DO Interpreting Physician: Pamela Campbell DO Sleep Study Type: Polysomnogram Height: 1.65 m Weight: 102.058 kg Body Mass Index: 37.4 Neck Circumference (inches): 16 [place]: 4 Reason for Sleep Study Unrefreshing sleep Sleep History The patient is a 77-year-old female with hypertension, GERD, arthralgia, hypothyroidism, urinary incontinence, hyperlipidemia, depression and seasonal allergies that had a sleep study ordered by her primary care for evaluation of sleep apnea. The patient denies awakening from sleep short of breath. She occasionally awakens at night with heartburn, belching or cough. She occasionally snores but it is never loud enough that others complain. She occasionally has trouble sleeping when she has a cold. She denies waking up gasping for air throughout the night. She occasionally has breathing problems at night observed by herself or others. She occasionally sweats excessively at night. She denies having heart palpitations or irregular heartbeats during the night. She constantly falls asleep during the day but never while driving. She denies sleep paralysis and cataplexy. She denies having trouble at school or work due to sleepiness. She occasionally experiences vivid dreamlike scenes upon awakening or falling asleep. She denies feeling afraid of going to sleep. She occasionally has nightmares. She frequently remembers her dreams. She denies having thoughts racing through her mind. She rarely feels sad or depressed. She occasionally has anxiety. She occasionally has muscular tension. She occasionally notices parts of her body jerk. She occasionally experiences crawling and aching feelings in her legs and occasionally has leg pain during the night. She denies grinding her teeth during sleep and denies awakening with morning jaw pain. She is frequently bothered by pain during the day and occasionally awakened by pain during the night. She constantly wakes up feeling stiff in the morning. She occasionally wakes up with sore or achy muscles. She constantly wakes up with pain in the neck, spine and other joints. The patient goes to bed between 10 to 10:30 p.m. on weekdays and 11:00 p.m. on the weekends. It takes her 15 minutes to fall asleep. She wakes up twice throughout the night for unknown reasons but is able to fall back asleep relatively quickly. She wakes up at 8:30 a.m. on weekdays and weekends. She typically gets 9 hours of sleep per night. She will stay in bed for 15 minutes after waking up in the morning. She currently lives alone. She denies consuming any caffeinated beverages within 2 hours of bedtime. She denies engaging in physical exercise before bedtime. She denies reading and watching television before falling asleep. She will take naps in the afternoon or the evening and they are refreshing. She consumes 1 cup of caffeinated beverage per day. She denies tobacco, alcohol and recreational drug use. [facility] Past Medical History Medical History Arthritis Depression Gastroesophageal reflux disease Helicobacter pylori (H. pylori) 1970s Hyperlipidemia Hypertension Hypothyroidism Morbid obesity Peptic ulcer 1970s Urinary incontinence in female Surgical History Surgical History History of arthroplasty of left knee (11/30/15) History of arthroplasty of right knee (04/11/16) History of arthroscopy of left knee (2003) History of cataract extraction History of colonoscopy with polypectomy (06/2021) Per Dr. Bliss for evaluation of Hemoccult-positive stool. Notable findings include benign colon polyps, diverticulosis, and internal and external hemorrhoids. History of dilation and curettage History of partial thyroidectomy History of tubal ligation Family History Family History (Reviewed 07/09/23
[2023-07-09 15:59] VITALS: BMI 37.4
== END 2023-06-21 06:50 | disposition home or self-care (01) ==
PROVIDERS: PCP Family Medicine; Visit Provider Family Medicine
DX: G47.10 Hypersomnia, unspecified (principal)
CPT/HCPCS: 95810

== ENCOUNTER 2023-07-17 12:00 | Outpatient (RCR) | payer MEDICARE, SELFPAY | END 2023-07-17 23:59 | disposition home or self-care (01) | LOC: ANHAUDIO 12:00 | PROVIDERS: PCP Family Medicine; Visit Provider Family Medicine | DX: Z46.1 Encounter for fitting and adjustment of hearing aid (principal) | CPT/HCPCS: 99199; V5261 ==

== ENCOUNTER 2023-09-06 14:09 | Outpatient (CLI) | payer MEDICARE, SELFPAY ==
[2023-09-06 18:08] LABS: Basophils Percent Auto 0.5 % (0.2-1.2); Eosinophils Absolute Auto 0.4 K/mm3 (0-0.3); Eosinophils Percent Auto 4.3 % (0-4.4); Hematocrit 40.6 % (37.0-47.0); Hemoglobin 12.5 g/dL (12.0-15.0); Immature Granulocyte Absolute 0.04 K/mm3 (0.00-0.031); Immature Granulocyte Percent A 0.5 % (0-0.5); Lymphocytes Absolute Auto 1.31 K/mm3 (0.9-3.2); Lymphocytes Percent Auto 15.4 % (18.3-44.2); Mean Corpuscular HGB Conc 30.8 g/dl (32-36); Mean Corpuscular Hemoglobin 29.5 pg (26-34); Mean Corpuscular Volume 95.8 fl (80-100); Mean Platelet Volume 11.4 fl (7.4-10.4); Monocytes Absolute Auto 0.7 K/mm3 (0.1-0.6); Monocytes Percent Auto 7.7 % (2.6-8.5); Neutrophils Absolute Auto 6.1 K/mm3 (1.3-6.7); Neutrophils Percent Auto 71.6 % (45.5-73.1); Platelet Count Result 268 k/mm3 (150-375); Red Blood Count 4.24 M/mm3 (4.2-5.4); Red Cell Distribution Width 13.5 % (11.5-14.5); White Blood Count 8.5 K/mm3 (4.5-10.0)
[2023-09-06 18:36] LABS: Iron 81 ug/dL (37-170)
[2023-09-06 18:52] LABS: Percent Iron Saturation 22 % (20-50)
== END 2023-09-06 14:10 | disposition home or self-care (01) ==
LOC: ANHGOSHLAB 14:11
PROVIDERS: PCP Family Medicine; Visit Provider Family Medicine
DX: D50.9 Iron deficiency anemia, unspecified (principal); R53.83 Other fatigue
CPT/HCPCS: 36415; 82728; 83540; 83550; 85025

== ENCOUNTER 2023-12-05 13:54 | Outpatient (CLI) | payer MEDICARE, SELFPAY ==
[2023-12-05 19:23] LABS: Basophils Absolute Auto 0.1 K/mm3 (0.0-0.1); Basophils Percent Auto 0.6 % (0.2-1.2); Eosinophils Absolute Auto 0.4 K/mm3 (0-0.3); Hemoglobin 12.4 g/dL (12.0-15.0); Immature Granulocyte Absolute 0.04 K/mm3 (0.00-0.031); Immature Granulocyte Percent A 0.4 % (0-0.5); Lymphocytes Absolute Auto 1.42 K/mm3 (0.9-3.2); Mean Corpuscular HGB Conc 32.6 g/dl (32-36); Mean Corpuscular Hemoglobin 30.8 pg (26-34); Mean Corpuscular Volume 94.3 fl (80-100); Mean Platelet Volume 11.4 fl (7.4-10.4); Monocytes Absolute Auto 0.7 K/mm3 (0.1-0.6); Monocytes Percent Auto 8.1 % (2.6-8.5); Neutrophils Absolute Auto 6.3 K/mm3 (1.3-6.7); Neutrophils Percent Auto 70.9 % (45.5-73.1); Platelet Count Result 255 k/mm3 (150-375); Red Blood Count 4.03 M/mm3 (4.2-5.4); Red Cell Distribution Width 13.6 % (11.5-14.5); White Blood Count 8.9 K/mm3 (4.5-10.0)
[2023-12-05 19:53] LABS: Alanine Aminotransferase 21 U/L (6-35); Albumin Level 4.1 g/dL (3.5-5.1); Alkaline Phosphatase 100 U/L (38-126); Anion Gap 6 mmol/L (4-12); Aspartate Amino Transferase 33 U/L (14-36); Bilirubin,Total 0.4 mg/dL (0.2-1.3); Blood Urea Nitrogen 31 mg/dL (7-17); Calcium 8.3 mg/dL (8.4-10.2); Carbon Dioxide 28 mmol/L (22-30); Chloride 102 mmol/L (98-107); Estimated Glomerular Filt Rate 36; Free T4 Free Thyroxine 1.33 ng/mL (0.78-2.19); Glucose 94 mg/dL (65-110); Potassium 4.9 mmol/L (3.4-5.0); Sodium 136 mmol/L (137-145)
[2023-12-05 21:03] LABS: Hemoglobin A1C 5.3 % (<5.7)
== END 2023-12-05 13:55 | disposition home or self-care (01) ==
LOC: ANHGOSHLAB 13:56
PROVIDERS: PCP Family Medicine; Visit Provider Family Medicine
DX: E03.9 Hypothyroidism, unspecified (principal); R73.03 Prediabetes; R53.83 Other fatigue; Z13.228 Encounter for screening for other metabolic disorders
CPT/HCPCS: 36415; 80053; 83036; 84439; 84443; 85025

== ENCOUNTER 2023-12-14 11:16 | Outpatient (CLI) | payer MEDICARE, SELFPAY ==
[2023-12-14 14:31] LABS: Alanine Aminotransferase 22 U/L (6-35); Albumin Level 4.4 g/dL (3.5-5.1); Alkaline Phosphatase 106 U/L (38-126); Anion Gap 11 mmol/L (4-12); Aspartate Amino Transferase 49 U/L (14-36); Bilirubin,Total 0.4 mg/dL (0.2-1.3); Blood Urea Nitrogen 37 mg/dL (7-17); Calcium 8.6 mg/dL (8.4-10.2); Carbon Dioxide 25 mmol/L (22-30); Chloride 95 mmol/L (98-107); Estimated Glomerular Filt Rate 43; Glucose 109 mg/dL (65-110); Sodium 131 mmol/L (137-145)
== END 2023-12-14 11:17 | disposition home or self-care (01) ==
LOC: ANHGOSHLAB 11:18
PROVIDERS: PCP Family Medicine; Visit Provider Family Medicine
DX: Z13.228 Encounter for screening for other metabolic disorders (principal)
CPT/HCPCS: 36415; 80053

== ENCOUNTER 2024-03-06 11:52 | Outpatient (CLI) | payer MEDICARE, SELFPAY ==
[2024-03-06 19:20] LABS: Alanine Aminotransferase 18 U/L (6-35); Alkaline Phosphatase 102 U/L (38-126); Anion Gap 9 mmol/L (4-12); Aspartate Amino Transferase 36 U/L (14-36); Bilirubin,Total 0.4 mg/dL (0.2-1.3); Blood Urea Nitrogen 29 mg/dL (7-17); Calcium 8.2 mg/dL (8.4-10.2); Carbon Dioxide 24 mmol/L (22-30); Chloride 99 mmol/L (98-107); Estimated Glomerular Filt Rate 48; Glucose 115 mg/dL (65-110); Sodium 132 mmol/L (137-145)
[2024-03-06 21:01] LABS: Free T4 Free Thyroxine 1.46 ng/mL (0.78-2.19)
== END 2024-03-06 11:53 | disposition home or self-care (01) ==
LOC: ANHGOSHLAB 11:53
PROVIDERS: PCP Family Medicine; Visit Provider Family Medicine
DX: E03.9 Hypothyroidism, unspecified (principal); Z13.228 Encounter for screening for other metabolic disorders
CPT/HCPCS: 36415; 80053; 84439; 84443

== ENCOUNTER 2024-04-23 15:24 | Emergency (ER) | payer MEDICARE, SELFPAY ==
--- NOTE | 2024-04-23 15:35 | ED_ITS ---
HPI - General Adult General Chief complaint: Skin/Abscess/Foreign Body Stated complaint: LT Ear ache Time Seen by Provider: 04/23/24 15:35 Source: patient Mode of arrival: ambulatory Limitations: no limitations History of Present Illness HPI narrative: 78 yo F presents with piece of hearing aid stuck in L ear. pt has no other complaints today. All systems reviewed and negative except as noted above. Related Data Home Medications Medication Instructions Recorded Confirmed ascorbic acid (vitamin C) 500 mg 500 mg PO DAILY 05/20/21 04/23/24 tablet multivitamin with minerals-folic 1 tablet PO DAILY 05/20/21 04/23/24 acid 0.4 mg tablet magnesium 250 mg tablet 250 mg PO DAILY 04/24/22 04/23/24 oxybutynin chloride 10 mg 10 mg PO QAM 09/14/22 04/23/24 tablet,extended release 24 hr red beet root 250 mg-sour cazares 1 tablet PO DAILY 06/12/23 04/23/24 extract 0.5 mg chewable tablet trospium 20 mg tablet 20 mg PO DAILY 04/23/24 04/23/24 Allergies Allergy/AdvReac Type Severity Reaction Status Date / Time CJ Inhibitors AdvReac Intermediate cough Verified 04/23/24 15:27 cortisone AdvReac Mild hot flush Verified 04/23/24 15:27 prednisone AdvReac Mild Agitated Verified 04/23/24 15:27 Review of Systems Review of Systems: CONSTITUTIONAL: Denies fever, chills, or sweats. EYES: Denies visual changes, redness, or discharge. ENT: Denies rhinorrhea, congestion, sore throat, or otalgia.Patient reports foreign body to left ear canal. CARDIOVASCULAR: Denies chest pain, palpitations, or edema. RESPIRATORY: Denies cough or dyspnea. GASTROINTESTINAL: Denies abdominal pain, nausea, vomiting, or diarrhea. GENITOURINARY: Denies dysuria or hematuria. SKIN: Denies rash or itching. MUSCULOSKELETAL: Denies back pain, joint pain, or myalgia. NEUROLOGIC: Denies headache, numbness, or weakness. PSYCHIATRIC: Denies anxiety or depression. All other systems reviewed are negative, except as documented in HPI. [facility] Past Medical History Medical History Arthritis Depression Gastroesophageal reflux disease Helicobacter pylori (H. pylori) 1970s Hyperlipidemia Hypertension Hypothyroidism Morbid obesity Peptic ulcer 1970s Urinary incontinence in female Surgical History Surgical History History of arthroplasty of left knee (11/30/15) History of arthroplasty of right knee (04/11/16) History of arthroscopy of left knee (2003) History of cataract extraction History of colonoscopy with polypectomy (06/2021) Per Dr. Bliss for evaluation of Hemoccult-positive stool. Notable findings include benign colon polyps, diverticulosis, and internal and external hemorrhoids. History of dilation and curettage History of partial thyroidectomy History of tubal ligation Family History Family History Sibling Family history of suicide Family history of type 2 diabetes mellitus Family history of renal failure Patient's sister is , Onset Age: 65 Patient's brother is Patient's brother is in good health Father Family history of chronic obstructive pulmonary disease Mother Family history of malignant neoplasm of ovary Other Diabetes mellitus Family history of arthritis Family history of blood dyscrasia Family history of cardiovascular disease Family history of kidney disease Family history of malignant neoplasm Hypertension Social History Social History Social History: Surrogate medical decision maker: Orestes Barbosa, henok. Code status: Full code. Smoking status: Never smoker Second hand tobacco smoke exposure: No Alcohol intake: never Substance use: never Lack of Transportation: No Lack of Food: Never True Current Housing: I Have Housing Concerned About Future Housing: No Difficulty Paying Gas/Electric Bills: No Difficulty Paying for Meds: No Currently Unemployed: No Education: Grade School Difficulty w/ Childcare or Family Care: No Living arrangements: alone Additional living arrangements comments: . Spiritual care concerns: No Comments At time of signature, agree with nursing past medical, surgical, social and family history. There is no relevant family history pertinent to the presenting complaint. Exam Narrative: GENERAL: This is a well-nourished, well-developed patient, in no apparent distress. HEAD: normocephalic, atraumatic. EYES: PERRL. Sclera clear/white. Vision is grossly intact. EARS: External ears normal, Left ear canal foreign body noted. Right ear canal normal, After foreign body removed from left ear canal TMs normal without perforation. Hearing grossly intact. NOSE: External nose normal NECK: Neck supple, non-tender without lymphadenopathy, masses or thyromegaly. CARDIOVASCULAR: Regular rate and rhythm without murmurs, gallops, or rubs. RESPIRATORY: Clear to auscultation. Breath sounds equal bilaterally. No wheezes, rales, or rhonchi. SKIN: warm, Dry, intact with no suspicious lesions or rash, good texture and turgor. NEURO: awake, alert, and oriented to person, place and time. There were no obvious focal neurologic abnormalities. EXTREMITIES: No joint tenderness, effusion, or edema noted. Course Course Level of Care: Express Care Visit Vital Signs Vital signs: Vital Signs Temperature 35.7 C L 04/23/24 15:36 Pulse Rate 68 04/23/24 15:36 Respiratory Rate 18 04/23/24 15:36 Blood Pressure 136/62 04/23/24 15:36 Pulse Oximetry 100 04/23/24 15:36 Oxygen Delivery Room Air 04/23/24 15:36 Temperature 35.7 C L 04/23/24 15:36 Pulse Rate 68 04/23/24 15:36 Respiratory Rate 18 04/23/24 15:36 Blood Pressure 136/62 04/23/24 15:36 Pulse Oximetry 100 04/23/24 15:36 Oxygen Delivery Room Air 04/23/24 15:36 reviewed Procedures FB Removal Ear Foreign Body #1: Foreign Body Removal Date: 04/23/24 Foreign Body Removal Time: 15:40 Location: ear canal (L) Foreign Body Suspected: other plastic (piece from hearing aid) TM intact pre-procedure: yes Foreign Body Removed: yes Foreign Body Removal Technique: other (alligator clamp) Tympanic Membrane Intact Post Procedure: Yes Patient Tolerated Procedure: well Complications: none Medical Decision Making MDM Narrative Medical decision making narrative: FB removed from L ear canal using alligator clamp without complication Patient is aware of diagnosis, understands and agrees to treatment plan. Anticipatory guidance given. Patient agrees to follow-up as directed and is a truong of reasons to seek care at the emergency department. Portions of this record may have been created with voice recognition software Vital Signs Vital Signs: Vital Signs Temperature 35.7 C L 04/23/24 15:36 Pulse Rate 68 04/23/24 15:36 Respiratory Rate 18 04/23/24 15:36 Blood Pressure 136/62 04/23/24 15:36 Pulse Oximetry 100 04/23/24 15:36 Oxygen Delivery Room Air 04/23/24 15:36 Temperature 35.7 C L 04/23/24 15:36 Pulse Rate 68 04/23/24 15:36 Respiratory Rate 18 04/23/24 15:36 Blood Pressure 136/62 04/23/24 15:36 Pulse Oximetry 100 04/23/24 15:36 Oxygen Delivery Room Air 04/23/24 15:36 Discharge Plan Discharge Clinical Impression: Foreign body in left ear Qualifiers: Encounter type: initial encounter Qualified Code(s): T16.2XXA - Foreign body in left ear, initial encounter Patient Disposition: Home, Self-Care Condition: Stable Instructions: Ear Foreign Body (ED) Additional Instructions: A piece from your hearing aid was removed from your left ear today. Prescriptions: No Action trospium 20 mg tablet 20 mg PO DAILY magnesium 250 mg tablet 250 mg PO DAILY red beet root-sour cazares ext 250-0.5 mg tablet,chewable 1 tablet PO DAILY mometasone 50 mcg/actuation spray,non-aerosol 2 spray NASAL DAILY Qty: 51 2RF duloxetine 30 mg capsule,delayed release(DR/EC) 30 mg PO DAILY Qty: 90 1RF cetirizine 10 mg tablet 10 mg PO DAILY PRN (Reason: allergy symptoms) Qty: 90 1RF budesonide-formoterol [Symbicort] 160-4.5 mcg/actuation HFA aerosol inhaler 1 inh inhalation DAILY Qty: 10.2 2RF levothyroxine 137 mcg tablet 137 mcg PO DAILY Qty: 90 1RF gabapentin 300 mg capsule 300 mg PO QHS Qty: 30 0RF tramadol 50 mg tablet 50 mg PO Q6H PRN (Reason: pain) Qty: 60 0RF ascorbic acid (vitamin C) 500 mg Tablet 500 mg PO DAILY multivit with min-folic acid 0.4 mg Tablet 1 tablet PO DAILY oxybutynin chloride 10 mg tablet extended release 24hr 10 mg PO QAM polyethylene glycol 3350 [Miralax] 17 gram Powder In Packet 17 g PO QAM Qty: 30 0RF docusate sodium 100 mg Capsule 100 mg PO Q12HR Qty: 60 0RF simvastatin 40 mg tablet 40 mg PO DAILY Qty: 90 4RF celecoxib [Celebrex] 200 mg capsule 200 mg PO DAILY PRN (Reason: pain) Qty: 90 1RF lansoprazole 30 mg capsule,delayed release(DR/EC) 30 mg PO DAILY Qty: 90 1RF Rx Instructions: TAKE 1 CAPSULE DAILY ferrous sulfate 325 mg (65 mg iron) tablet 324 mg PO BIDWM Qty: 60 3RF gjvgzvmdlz-zujgmuixd-idncmglfk 40-5-12.5 mg tablet 1 tablet PO DAILY Qty: 90 1RF Follow-up/Referrals: Jeremy Santana DO [Primary Care Provider] - Time of Disposition: 15:40
[2024-04-23 15:36] VITALS: BP 136/62; PULSE 68; RESP 18; TEMP 35.7; O2SAT 100
== END 2024-04-23 15:41 | disposition home or self-care (01) ==
PROVIDERS: Emergency Provider Nurse Practitioner Family; PCP Family Medicine
DX: T16.2XXA Foreign body in left ear, initial encounter (principal); W44.G1XA Audio device entering into or through a natural orifice, initial encounter; I10 Essential (primary) hypertension; E03.9 Hypothyroidism, unspecified; E78.5 Hyperlipidemia, unspecified; M19.90 Unspecified osteoarthritis, unspecified site; K21.9 Gastro-esophageal reflux disease without esophagitis; E66.01 Morbid (severe) obesity due to excess calories; Z96.653 Presence of artificial knee joint, bilateral; Z90.89 Acquired absence of other organs
CPT/HCPCS: 69200; 99212; G0463

== ENCOUNTER 2024-11-10 13:30 | Outpatient (CLI) | payer MEDICARE, SELFPAY ==
--- NOTE | ~2024-11-10 | MR_ITS ---
MRI of the brain Clinical History: Dizziness Technique: Axial and sagittal T1-weighted images were acquired. These were followed by axial T2-weigh karly, diffusion weighted, gradient, and FLAIR images. Findings: No acute infarct, intracranial hemorrhage or mass lesion seen. There are mild scattered foc al white matter signal abnormalities in the periventricular matter bilaterally, most likely mild senior fund accountant deana microvascular ischemic change. Ventricles and subarachnoid spaces are minimally dilated. Orbits are unremarkable. Paranasal sinuses and mastoid air cells are clear. Major intracranial flow voids are intact. Sagittal midline structures are intact. IMPRESSION: Probable mild chronic microvascular ischemic change, otherwise unremarkable exam. Reviewed, dictated and finalized at location M. IMPRESSION: Probable mild chronic microvascular ischemic change, otherwise unremarkable lynn murphy
--- OUTSIDE RECORDS SUMMARY | 2024-11-10 14:46 | XMS_ITS | Encounter Summary ---
Author Organization [facility] Healthcare Address [address] [place] [address] Care Team Providers Care Child Welfare Consultant Name Role Phone Daphne Doss NP Primary Care Provider [phone] Encounter Details Date Type Department Care Team (Latest Contact Info) Description 10/02/2024 Results Follow-Up [facility] Primary Care at [address] [address] Daphne Doss NP [address] [place] [address] [address] [place] [address] Transthoracic Echo (TTE) Complete W Doppler/CF Social History Tobacco Use Types Packs/Day Years Used Date Smoking Tobacco: Never Passive Smoke Exposure: Never Smokeless Tobacco: Never AUDIT-C Answer Date Recorded Q1: How often do you have a drink containing alcohol? Never 09/04/2024 Q2: How many drinks containi ng alcohol do you have on a typical day when you are drinking? Patient does not drink Q3: How often do you have si x or more drinks on one occasion? Never 09/04/2024 PHQ-2 Answer Date Recorded PHQ-2 Total Score (If total score is 3 or more points, staff should administer the PHQ-9) 0 10/02/2024 Comments No Sex and Gender Information Value Date Recorded Sex Assigned at Not on file Legal Sex Female 6:34 PM [employer] Gender Identity Not on file Sexual Orientation Not on file documented as of this encounter Plan of Treatment Not on file documented as of this encounter Visit Diagnoses Not on filedocumented in this encounter Care Teams Child Welfare Consultant Relationship Specialty Start Date End Date Daphne Doss NP [address] [facility] [address] [place] [address] PCP - General Internal Medicine 09/04/24 documented as of this encounter
--- OUTSIDE RECORDS SUMMARY | 2024-11-10 14:46 | XMS_ITS | Encounter Summary ---
Author Organization [facility] Healthcare Address [address] [place] [id number] Care Team Providers Care Watch Adjuster Name Role Phone Daphne Doss NP Primary Care Provider [phone] Encounter Details Date Type Department Care Team (Late st Contact Info) Description 09/08/2024 Results Follow-Up [facility] Primary Care at [address] [address] Dpahne Doss NP [address] [place] [address] [address] [place] [address] Ferritin, Thyroid Function Mcminn, Iron profile w/ IBC, Additional followed-up results: 6 Social History Tobacco Use Types Packs/Day Years [...] should administer the PHQ-9) 0 10/02/2024 Comments Unknown Sex and Gender Information Value Date Recorded Sex Assigned at Not on file Legal Sex Female 6:34 PM [employer] Gender Identity Not on file Sexual Orientation Not on file documented as of this encounter Miscellaneous Notes * Result Encounter Note - Tamika Jordan MA - 09/11/2024 2:41 PM CDT Pt was informed and voiced understanding She remembers having a colonoscopy at [facility] when she was admitted 2019. I will be requesting records for that. documented in this encounter Plan of Treatment Not on file documented as of this encounter Results * (ABNORMAL) Vitamin B12 (10/02/2024 12:07 PM CDT) Vitamin B12 2,310(H) 230 - 1,250 pg/mL Blood 10/02/2024 12:0 7 PM CDT 10/02/2024 9:15 PM CDT Daphne Doss NP LAB BLOOD ORDERABLES Final Re sult [facility] [address] Department [place] [address] * (ABNORMAL) Renal function panel (10/02/2024 12:07 PM CDT) Sodium 137 135 - 145 mmol/L Potassium, pl 5.1(H) 3.3 - 4.9 mmol/L [facility] Chloride 101 97 - 110 mmol/L [facility] CO2 26 22 - 32 mmol/L [facility] Anion gap 10 2 - 15 mmol/L [facility] BUN 23 6 - 25 mg/dL [facility] Creatinine 0.95 0.60 - 1.10 mg/dL [facility] Glucose 127 70 - 199 mg/dL [facility] Comment: Interpretive Data Fasting glucose >/= 126 mg/dl is diagnostic for diabetes. Fasting is defined as no caloric intake for at least 8 hours. Fasting glucose between 100 mg/dl to 125 mg/dl is diagnostic of prediabetes. In a patient with classic symptoms of hyperglycemia or hyperglycemic crisis, a random glucose >/= 200 mg/dl is diagnostic for diabetes. In the absence of unequivocal hyperglycemia, results should be confirmed by repeat testing. The classification and Diagnosis of Diabetes Diabetes Care 202; 46: S19-S40. Current interpretive data was last revised 2022. Calcium 9.3 8.5 - 10.3 mg/dL [facility] Phosphorus, pl 4.0 2.3 - 4.5 mg/dL [facility] Albumin 4.3 3.5 - 5.0 g/dL [facility] Blood 10/02/2024 12:0 7 PM CDT 10/02/2024 9:15 PM CDT Daphne Doss NP LAB BLOOD ORDERABLES Final Re sult [facility] [address] [address] Department [place] [address] documented in this encounter Visit Diagnoses Diagnosis Iron deficiency anemia, unspecified iron deficiency anemia type- Primary Hyperkalemia Hyperpotassemia Decreased GFR documented in this encounter Care Teams Watch Adjuster Relationship Specialty Start Date End Date Daphne Doss NP [address] [facility] [address] [place] [address] PCP - General Internal Medicine 09/04/24 documented as of this encounter
--- OUTSIDE RECORDS SUMMARY | 2024-11-10 14:46 | XMS_ITS | Referral Summary ---
Author Organization [facility] at the Medical Office Building Address [address] [place] [phone] Care Team Providers Care Mold Filler Name Role Phone Angelo Medellin R[facility]ET[facility] Primary Care Provider Encounters Date Type Department Care Team Description 11/06/2024 3:00 PM CDT Therapy [facility] Medical Office [facility] 1 OP Physical Therapy [address] [place] [id number] Richa Winslow PTA Acute pain of left shoulder (Primary Dx) 10/31/2024 Plan of Care Documentation [facility] Medical Office [facility] 1 OP Physical Therapy [address] [place] [id number] 10/31/2024 1:30 PM CDT Therapy [facility] Medical Office [facility] 1 OP Physical Therapy [address] [place] [phone] Mally Rosenbaum, PT Acute pain of left shoulder (Primary Dx); Neck pain 10/30/2024 Orders Only [facility] Primary Care at [address] [phone] Angelo Medellin NP Dizzinesses (Primary Dx); Postural dizziness with presyncope 10/22/2024 Orders Only [facility] Primary Care at [address] [phone] Angelo Medellin NP Memory changes (Primary Dx) 10/20/2024 Telephone [facility] Primary Care at [address] [phone] Consuelo Samuel MA Neurology Referral; Medical Question/Miscellaneou s 10/10/2024 Documentation [facility] Primary Care at [address] [phone] Angelo Medellin NP 10/02/2024 12:07 PM CDT - 10/02/2024 11:59 PM CDT Hospital Encounter [address] [address] Iron deficiency anemia, unspecified iron deficiency anemia type; Hyperkalemia; Decreased GFR Discharge Disposition: Discharge to home or self care 10/02/2024 Results Follow-Up [facility] Primary Care at [address] [phone] Angelo Medellin NP Transthoracic Echo (TTE) Complete W Doppler/CF 10/02/2024 Telephone [facility] Primary Care at [address] [phone] Angelo Medellin NP 10/02/2024 12:00 PM CDT Lab [facility] Outpatient Lab at [address] [phone] Depression (Primary Dx); Hyperlipidemia 10/02/2024 1:30 PM CDT Ancillary Procedure [facility] Cardiology at [address] [place] [address] SOB (shortness of breath); Bilateral leg edema 10/02/2024 11:00 AM CDT Office Visit [facility] Primary Care at [address] [phone] Angelo Medellin NP Morbid obesity with BMI of 45.0-49.9, adult (HCC) (Primary Dx); Gastroesophageal reflux disease without esophagitis; Mixed hyperlipidemia; Acquired hypothyroidism; Chronic midline low back pain without sciatica; Neuropathic pain; Dizzinesses; Postural dizziness with presyncope; Acute pain of left shoulder; Neck pain; Memory changes; Palpitations; Hyponatremia; Hypertension, essential; Chronic rhinitis; Mild persistent asthma without complication; Other iron deficiency anemia; OAB (overactive bladder); Prediabetes; Primary osteoarthritis involving multiple joints; RLS (restless legs syndrome); SOB (shortness of breath) 09/08/2024 Results Follow-Up [facility] Primary Care at [address] [phone] Angelo Medellin NP Ferritin, Thyroid Function Bonner, Iron profile w/ IBC, Additional followed-up results: 6 09/05/2024 10:41 AM CDT - 09/05/2024 11:59 PM CDT Hospital Encounter [address] [address] Iron deficiency anemia, unspecified iron deficiency anemia type; RLS (restless legs syndrome); Acquired hypothyroidism; Mixed hyperlipidemia; Hyponatremia; Prediabetes Discharge Disposition: Discharge to home or self care 09/05/2024 10:45 AM CDT Lab [facility] Outpatient Lab at [address] [phone] Morbid obesity with BMI of 45.0-49.9, adult (HCC) (Primary Dx); Iron deficiency anemia; Hypertension, essential 09/04/2024 3:30 PM CDT Office Visit [facility] Primary Care at [address] [phone] Angelo Medellin NP Morbid obesity with BMI of 45.0-49.9, adult (HCC) (Primary Dx); OAB (overactive bladder); Chronic midline low back pain without sciatica; Mild persistent asthma without complication; Gastroesophageal reflux disease without esophagitis; Mixed hyperlipidemia; Hypertension, essential; Chronic rhinitis; Acquired hypothyroidism; Iron deficiency anemia, unspecified iron deficiency anemia type; Primary osteoarthritis involving multiple joints; RLS (restless legs syndrome); Hyponatremia; SOB (shortness of breath); Bilateral leg edema; Prediabetes from Last 3 Months Allergies Active Allergy Reactions Criticality Noted Date Comments Prednisone Swelling Medium 09/04/2024 Medications trospium (SANCTURA) 20 mg tablet Take 1 tablet (20 mg total) by mouth daily Active magnesium oxide (MAG-OX) 250 mg (150.8 mg elemental) tabletIndications: hypomagnesemia Take 1 tablet (250 mg total) by mouth daily Active docusate sodium (STOOL SOFTENER ORAL) Take by mouth Active olmesartan-amLODIP in-hcthiazid 40-5-25 mg tabletIndications: Hypertension, essential Take 1 tablet by mouth daily 90 tablet 3 5 Active mometasone (NASONEX) 50 mcg/actuation nasal sprayIndications:A llergic Rhinitis Administer 2 sprays into each nostril daily 17 g 3 5 Active ferrous sulfate 325 mg (65 mg of elemental iron) tabletIndications: Iron Deficiency Anemia Take 1 tablet (325 mg total) by mouth 2 (two) times a day 90 tablet 3 5 Active celecoxib (CeleBREX) 200 mg capsuleIndications :Primary osteoarthritis involving multiple joints Take 1 capsule (200 mg total) by mouth daily as needed for pain 90 capsule 3 5 Active cetirizine (ZyrTEC) 10 mg tabletIndications: Chronic rhinitis Take 1 tablet (10 mg total) by mouth daily 90 tablet 3 5 Active budesonide-formote roL (SYMBICORT) 160-4.5 mcg/actuation inhalerIndications :Maintenance Therapy for Asthma Inhale 1 puff daily Rinse mouth with water after use. Do not swallow. 1 each 3 5 Active gabapentin (NEURONTIN) 300 mg capsuleIndications :Restless Legs Syndrome Take 1 capsule (300 mg total) by mouth nightly 90 capsule 3 5 Active lansoprazole (PREVACID) 30 mg capsuleIndications :Gastroesophageal reflux disease without esophagitis Take 1 capsule (30 mg total) by mouth daily 90 capsule 3 5 Active rosuvastatin (CRESTOR) 10 mg tabletIndications: Mixed hyperlipidemia Take 1 tablet (10 mg total) by mouth daily 90 tablet 3 5 026 Active levothyroxine (SYNTHROID) 137 mcg tabletIndications: Acquired hypothyroidism Take 1 tablet (137 mcg total) by mouth daily 90 tablet [address] (CYMBALTA) 60 mg capsuleIndications :Neuropathic pain Take 1 capsule (60 mg total) by mouth daily 90 capsule 3 5 026 Active traMADoL (ULTRAM) 50 mg tabletIndications: Chronic midline low back pain without sciatica Take 1 tablet (50 mg total) by mouth 2 (two) times a day as needed for pain 60 tablet 2 5 Active Active Problems Problem Noted Date Diagnosed Date Palpitations 10/03/2024 Assessment & Plan (10/03/2024 3:04 PM CDT): EKG and echo pending Chronic midline low back pain without sciatica 0 09/04/2024 Assessment & Plan (10/03/2024 3:04 PM CDT): Increase Cymbalta to 60 mg daily. Continue tramadol 50 mg b.i.d. PRN. Assessment & Plan (09/05/2024 7:56 AM CDT): Indicates good control with Cymbalta and tramadol at this time. Orders: DULoxetine DR (CYMBALTA) 30 mg capsule; Take 1 capsule (30 mg total) by mouth daily traMADoL (ULTRAM) 50 mg tablet; Take 1 tablet (50 mg total) by mouth every 8 (eight) hours as needed for pain OAB (overactive bladder) 09/04/2024 Assessment & Plan (10/03/2024 3:04 PM CDT): Follows with [facility]. Controlled on Sanctura 20mg daily. SmartLink not supported outside of the Encounter Diagnoses SmartSection. Assessment & Plan (09/05/2024 7:56 AM CDT): Follows with [facility]. Controlled on Sanctura 20mg daily. RLS (restless legs syndrome) 09/04/2024 Assessment & Plan (09/05/2024 7:56 AM CDT): Orders: gabapentin (NEURONTIN) 300 mg capsule; Take 1 capsule (300 mg total) by mouth nightly CBC with auto differential; Future Iron profile w/ IBC; Future Ferritin; Future Prediabetes 09/04/2024 Assessment & Plan (10/03/2024 3:05 PM CDT): Nonpharmacological interventions such as low carb diet, high in vegetables and low glycemic fruits discussed. Educated on importance of physical activity. Encourage diabetic eye exam. Discussed signs and symptoms of hypoglycemia and need to present to the ED. Follow up in 3 months or sooner if needed. Patient verbalizes understanding regarding plan of care and all questions answered. Assessment & Plan (09/05/2024 7:56 AM CDT): Orders: Hemoglobin A1c; Future SOB (shortness of breath) 09/04/2024 Assessment & Plan (10/03/2024 3:05 PM CDT): Intermittent shortness of breath. Echo pending today. Assessment & Plan (09/05/2024 7:56 AM CDT): Echo pending Orders: Transthoracic Echo (TTE) Complete W Doppler/CF; Future Hyponatremia 09/04/2024 Assessment & Plan (10/03/2024 3:01 PM CDT): Sodium levels have normalized. We will continue to monitor. Assessment & Plan (09/05/2024 7:56 AM CDT): Repeat labs pending Orders: Comprehensive metabolic panel; Future Primary osteoarthritis involving multiple joints 09/04/2024 Assessment & Plan (10/03/2024 3:05 PM CDT): Osteoarthritis causing significant pain, particularly in the arms, exacerbated by weather changes. Current use of Celebrex is concerning due to potential kidney function impact. Informed consent includes risks of kidney damage with continued Celebrex use and alternative pain management strategies. - Increase duloxetine from 30 mg to 60 mg daily to help manage chronic pain. - Limit or discontinue Celebrex use due to potential kidney impact. - Encourage use of tramadol up to three times daily as needed for pain management. Assessment & Plan (09/05/2024 7:56 AM CDT): Orders: celecoxib (CeleBREX) 200 mg capsule; Take 1 capsule (200 mg total) by mouth daily as needed for pain Iron deficiency anemia 09/04/2024 Assessment & Plan (09/05/2024 7:56 AM CDT): Repeat labs pending Orders: ferrous sulfate 325 mg (65 mg of elemental iron) tablet; Take 1 tablet (325 mg total) by mouth 2 (two) times a day CBC with auto differential; Future Iron profile w/ IBC; Future Ferritin; Future Acquired hypothyroidism 09/04/2024 Assessment & Plan (10/03/2024 3:04 PM CDT): We will continue Synthroid 137 mcg daily. Levels are stable. Follow up in three months. SmartLink not supported outside of the Encounter Diagnoses SmartSection. Assessment & Plan (09/05/2024 7:56 AM CDT): We will continue Synthroid. Labs pending. Orders: levothyroxine (SYNTHROID) 137 mcg tablet; Take 1 tablet (137 mcg total) by mouth daily Thyroid Function Bonner; Future Chronic rhinitis 09/04/2024 Assessment & Plan (09/05/2024 7:56 AM CDT): Continue Nasonex and Zyrtec daily. Orders: mometasone (NASONEX) 50 mcg/actuation nasal spray; Administer 2 sprays into each nostril daily cetirizine (ZyrTEC) 10 mg tablet; Take 1 tablet (10 mg total) by mouth daily Hypertension, essential 09/04/2024 Assessment & Plan (10/03/2024 3:01 PM CDT): Blood pressure well controlled. Continue olmesartan, amlodipine, hydrochlorothiazide in combination of 4-5-25 mg daily.. Refills sent to patients requested pharmacy. Discussed medications desired effects, potential side effects, and how to administer the medication. Non Pharmacological interventions such as low salt, cardiac diet discussed. Educated on stress reduction and physical activity. Discussed signs and symptoms of major cardiovascular event and need to present to the ED. Follow up in 3 months or sooner if needed. Patient verbalizes understanding regarding plan of care and all questions answered. Assessment & Plan (09/05/2024 7:56 AM CDT): Orders: yesyofkxtb-unHPXNGxd-xosarrwlk 40-5-25 mg tablet; Take 1 tablet by mouth daily Morbid obesity with BMI of 45.0-49.9, adult 08/2024 Assessment & Plan (10/03/2024 2:58 PM CDT): Discussed the patient's BMI. The BMI is above average. BMI management plan is completed. BMI Follow-up includes: nutrition counseling, exercise counseling and education provided. SmartLink not supported outside of the Encounter Diagnoses SmartSection. Assessment & Plan (09/05/2024 7:56 AM CDT): Discussed the patient's BMI. The BMI is above average. BMI management plan is completed. BMI Follow-up includes: nutrition counseling, exercise counseling and education provided. Mild persistent asthma without complication Assessment & Plan (10/03/2024 3:05 PM CDT): Asthma managed with budesonide-formoterol inhaler. No acute exacerbations reported. -Continue Symbicort Assessment & Plan (09/05/2024 7:56 AM CDT): Orders: budesonide-formoteroL (SYMBICORT) 160-4.5 mcg/actuation inhaler; Inhale 1 puff daily Rinse mouth with water after use. Do not swallow. GERD (gastroesophageal reflux disease) Assessment & Plan (09/05/2024 7:56 AM CDT): Continue Prevacid Orders: lansoprazole (PREVACID) 30 mg capsule; Take 1 capsule (30 mg total) by mouth daily Hyperlipidemia Assessment & Plan (10/03/2024 3:00 PM CDT): Fasting lipid panel reviewed. Continue Crestor 10 mg and nonpharmacological interventions.. Nonpharmacological interventions such as low carb diet, high in vegetables and fruit discussed. Educated on importance of physical activity. Follow up in 3 months or sooner if needed. Patient verbalizes understanding regarding plan of care and all questions answered Assessment & Plan (09/05/2024 7:56 AM CDT): Orders: Lipid panel; Future rosuvastatin (CRESTOR) 10 mg tablet; Take 1 tablet (10 mg total) by mouth daily Resolved Problems Problem Noted Date Diagnosed Date Resolved Date Recurrent major depression 10/02/2024 0 10/03/2024 Bilateral leg edema 09/04/2024 10/04/19 25 Assessment & Plan (09/05/2024 7:56 AM CDT): Echo pending. Orders: Transthoracic Echo (TTE) Complete W Doppler/CF; Future Anxiety 09/04/2024 Arthritis 10/03/2024 Thyroid disease 09/04/2024 Immunizations Immunization Administration Dates Next Due Influenza, Quad, Adjuvantated, Intramuscular ,06/07/2021 Influenza, Quadrivalent, Hig h Dose, Preservative Free, Intrr 04/16/2022 Influenza, Trivalent, Adjuvanted, Intramuscular 02/26/2024,02/28/2018 Influenza, Trivalent, High D ose, Split, Preservative Free, Intramuscular 02/28/2019,03/05/2017 Pneumococcal Conjugate PCV 13 03/04/2019 RSV Vaccine, Pref, Recombina nt, Subunit, Adjuvanted, PF, IM (Arexvy) 05/02/2023 Social History Tobacco Use Types Packs/Day Years Used Date Smoking Tobacco: Never Passive Smoke Exposure: Never Smokeless Tobacco: Never Tobacco Cessation:Counseling Given: Not Answered AUDIT-C Answer Date Recorded Q1: How often [...] on file Legal Sex Female 6:34 PM [employer] Gender Identity Not on file Sexual Orientation Not on file Last Filed Vital Signs Vital Sign Reading Time Taken Comments Blood Pressure 110/70 10/02/2024 10:59 AM CDT Pulse 94 10/02/2024 10:59 AM CDT Temperature 36.7 C (98 F) 10/02/2024 10:59 AM CDT Respiratory Rate 16 10/02/2024 10:59 AM CDT Oxygen Saturation 96% 10/02/2024 10:59 AM CDT Inhaled Oxygen Concentration - - Weight 110.7 kg (244 lb) 10/02/2024 10:59 AM CDT Height 154.9 cm (5' 1) 10/02/2024 10:59 AM CDT Body Mass Index 46.1 10/02/2024 10:59 AM CDT Plan of Treatment Not on file Procedures Procedure Name Priority Date/Time Associated Diagnosis Comments TRANSTHORACIC ECHO (TTE) COMPLETE W DOPPLER/CF WO CONTRAST Routine 10/02/2024 1:57 PM CDT SOB (shortness of breath) Bilateral leg edema EGFR Routine 10/02/2024 12:07 PM CDT Decreased GFR RENAL FUNCTION PANEL Routine 10/02/2024 12:07 PM CDT Decreased GFR VITAMIN B12 Routine 10/02/2024 12:07 PM CDT Iron deficiency anemia, unspecified iron deficiency anemia type EGFR Routine 09/05/2024 10:41 AM CDT Hyponatremia DIFFERENTIAL AUTO Routine 09/05/2024 10: 41 AM CDT Iron deficiency anemia, unspecified iron deficiency anemia type RLS (restless legs syndrome) HEMOGLOBIN A1C Routine 09/05/2024 10:41 AM CDT Prediabetes CBC WITH AUTO DIFFERENTIAL Routine 09/05/2024 10:41 AM CDT Iron deficiency anemia, unspecified iron deficiency anemia type RLS (restless legs syndrome) COMPREHENSIVE METABOLIC PANEL Routine 09/05/2024 10:41 AM CDT Hyponatremia LIPID PANEL Routine 09/05/2024 10:41 AM CDT Mixed hyperlipidemia IRON PROFILE W/ IBC Routine 09/05/2024 1 0:41 AM CDT Iron deficiency anemia, unspecified iron deficiency anemia type RLS (restless legs syndrome) THYROID FUNCTION CASCADE Routine 09/05/2024 10:41 AM CDT Acquired hypothyroidism FERRITIN Routine 09/05/2024 10:41 AM CDT Iron deficiency anemia, unspecified iron deficiency anemia type RLS (restless legs syndrome) from Last 3 Months Results * TRANSTHORACIC ECHO (TTE) COMPLETE W DOPPLER/CF WO CONTRAST (10/02/2024 1:57 PM CDT) Estimated EF 70-75 % CONS SCIMAGE EF Mod BP 74 % CONS SCIMAGE Anatomical Region Laterality Modality Ultrasound 10/02/2024 1:29 PM CDT Narrative 10/02/2024 3:54 PM CDT [facility] Cardiology [address], [address], [place] [address] P:[phone] P:[phone] Echocardiographic Report Patient Name: BRANDON CUNNINGHAM : 1945 Study Date: 10/02/2024 1:29:04 PM Gender: F Tech: Location: [facility] Ref Provider: ANGELO MEDELLIN Height(Cm): 152 BSA: 2.2 Weight(Kg): 114.8 Heart Rate: 71 BP: 110 / 70 Quality: Good Order Provider: ANGELO MEDELLIN PROCEDURES: Echocardiographic Report: Transthoracic echocardiogram with complete 2D, M-Mode, and color Doppler examination. INDICATIONS: R06.02 Shortness of breath and R60.0 Localized edema. MEASUREMENTS: 2D/MM Value Range Doppler Value Range EF Mod BP 74 % [ 54 - 74 ] JULIAN Vmax 2.21 cm2 [ 2.00 - 4.00 ] EF Teich MM 67 % [ 54 - 74 ] AV Mean PG 8 mmHg Estimated EF 70-75 % AV Peak Jabier 2.02 m/s [ 1.00 - 1.70 ] LVIDd 2D 4.26 cm [ 3.80 - 5.20 ] AV Peak PG 16 mmHg LVIDd MM 4.28 cm [ 3.80 - 5.20 ] AV VTI 44.50 cm LVIDs 2D 2.92 cm [ 2.20 - 3.50 ] LVOT Diam 2.03 cm [ 1.70 - 2.10 ] LVIDs MM 2.69 cm [ 2.20 - 3.50 ] LVOT Peak Jabier 1.34 m/s [ 0.70 - 1.10 ] LVPWd 2D 1.15 cm [ 0.60 - 0.90 ] LVOT VTI 31.26 cm LVPWd MM 1.10 cm [ 0.60 - 0.90 ] MV E Peak Jabier 0.66 m/s [ 0.60 - 1.30 ] IVSd 2D 1.32 cm [ 0.60 - 0.90 ] MV A Peak Jabier 0.88 m/s [ 1.00 - 1.20 ] IVSd MM 1.07 cm [ 0.60 - 0.90 ] MV Decel Time 344 msec [ 104 - 258 ] LA Dimension MM 4.09 cm [ 2.70 - 3.80 ] PV Peak Jabier 1.31 m/s [ 0.40 - 0.80 ] AoR Diam MM 3.28 cm [ 2.70 - 3.70 ] TR Peak Jabier 2.96 m/s [ 1.00 - 2.80 ] LA Volume Index 20 cc/m2 [ 16 - 34 ] TR Peak PG 35 mmHg ACS MM 2.01 cm RVSP 43.00 mmHg [ 10.00 - 36.00 ] Lateral E` 0.09 m/s [ 0.10 - 0.15 ] E/E` 7 2D/MM Value Range Doppler Value Range - FINDINGS: Interpretation Site: Exam was interpreted at [facility]. Left Ventricle: Normal left ventricular systolic function. No focal wall motion abnormalities. Normal left ventricular size. Mild concentric left ventricular hypertrophy. Impaired diastolic relaxation Grade I. Ejection fraction is measured at 74 %. Ejection Fraction is visually estimated to be 70-75 %. Right Ventricle: Normal right ventricular size. Normal right ventricular systolic function. Left Atrium: There is mild enlargement of left atrium. Right Atrium: The right atrium is normal in size. Atrial Septum: Normal atrial septum. Mitral Valve: Moderate mitral annular calcification. Trivial regurgitation of the mitral valve. There is no hemodynamically significant mitral stenosis by Doppler. Aortic Valve: No evidence of hemodynamically significant aortic stenosis by Doppler. Aortic cusps appear mildly sclerotic. Trileaflet aortic valve. Trace aortic valve regurgitation. Tricuspid Valve: Normal appearance of the tricuspid valve. Mild pulmonary hypertension based on right ventricular systolic pressure. Estimated peak RVSP is 43 mmHg. Mild tricuspid regurgitation. Pulmonic Valve: Normal appearance of the pulmonic valve. No pulmonic stenosis. Moderate pulmonic regurgitation. Pericardium: Normal pericardium with no significant pericardial effusion. There is an anterior echo free space consistent with epicardial fat pad. Aorta: Normal aortic root. Mild aortic root calcification. IVC: Normal size and normal respiratory collapse consistent with normal right atrial pressure (<5 mmHg). CONCLUSIONS: Normal left ventricular systolic function. No focal wall motion abnormalities. Normal left ventricular size. Mild concentric left ventricular hypertrophy. Impaired diastolic relaxation Grade I. Ejection fraction is measured at 74 %. Ejection Fraction is visually estimated to be 70-75 %. There is mild enlargement of left atrium. Mild pulmonary hypertension based on right ventricular systolic pressure. Estimated peak RVSP is 43 mmHg. Mild tricuspid regurgitation. Moderate pulmonic regurgitation. Normal sinus rhythm. APCs. Electronically Signed By: Jewel Wolfe MD 10/02/2024 3:53:19 PM CDT Procedure Note Jewel Wolfe MD - 10/02/2024 [facility] Cardiology [address] , [address], [place] [address] P:[phone] P:[phone] Echocardiographic Report Patient Name: BRANDON CUNNINGHAM : 1945 Study Date: 10/02/2024 1:29:04 PM Gender: F Tech: Location: [facility] Ref Provider: ANGELO MEDELLIN Height(Cm): 152 BSA: 2.2 Weight(Kg): 114.8 Heart Rate: 71 BP: 110 / 70 Quality: Good Order Provider: ANGELO MEDELLIN PROCEDURES: Echocardiographic Report: Transthoracic echocardiogram with complete 2D, M-Mode, and color Dopplerexamination. INDICATIONS: R06.02 Shortness of breath and R60.0 Localized edema. MEASUREMENTS: 2D/MM Value Range Doppler ValueRange EF Mod BP 74 % [ 54 - 74 ] JULIAN Vmax 2.21cm2 [ 2.00 - 4.00 ] EF Teich MM 67 % [ 54 - 74 ] AV Mean PG 8mmHg Estimated EF 70-75 % AV Peak Jabier 2.02m/s [ 1.00 - 1.70 ] LVIDd 2D 4.26 cm [ 3.80 - 5.20 ] AV Peak PG 16mmHg LVIDd MM 4.28 cm [ 3.80 - 5.20 ] AV VTI 44.50cm LVIDs 2D 2.92 cm [ 2.20 - 3.50 ] LVOT Diam 2.03 cm[ 1.70 - 2.10 ] LVIDs MM 2.69 cm [ 2.20 - 3.50 ] LVOT Peak Jabier 1.34m/s [ 0.70 - 1.10 ] LVPWd 2D 1.15 cm [ 0.60 - 0.90 ] LVOT VTI 31.26cm LVPWd MM 1.10 cm [ 0.60 - 0.90 ] MV E Peak Jbaier 0.66m/s [ 0.60 - 1.30 ] IVSd 2D 1.32 cm [ 0.60 - 0.90 ] MV A Peak Jabier 0.88m/s [ 1.00 - 1.20 ] IVSd MM 1.07 cm [ 0.60 - 0.90 ] MV Decel Time 344msec [ 104 - 258 ] LA Dimension MM 4.09 cm [ 2.70 - 3.80 ] PV Peak Jabier 1.31m/s [ 0.40 - 0.80 ] AoR Diam MM 3.28 cm [ 2.70 - 3.70 ] TR Peak Jabier 2.96m/s [ 1.00 - 2.80 ] LA Volume Index 20 cc/m2 [ 16 - 34 ] TR Peak PG 35mmHg ACS MM 2.01 cm RVSP 43.00mmHg [ 10.00 - 36.00 ] Lateral E` 0.09 m/s [ 0.10 - 0.15 ] E/E` 7 2D/MM Value Range Doppler ValueRange - FINDINGS: Interpretation Site: Exam was interpreted at [facility]. Left Ventricle: Normal left ventricular systolic function. No focal wall motionabnormalities. Normal left ventricular size. Mild concentric left ventricular hypertrophy.Impaired diastolic relaxation Grade I. Ejection fraction is measured at 74 %. EjectionFraction is visually estimated to be 70-75 %. Right Ventricle: Normal right ventricular size. Normal right ventricular systolicfunction. Left Atrium: There is mild enlargement of left atrium. Right Atrium: The right atrium is normal in size. Atrial Septum: Normal atrial septum. Mitral Valve: Moderate mitral annular calcification. Trivial regurgitation of the mitralvalve. There is no hemodynamically significant mitral stenosis by Doppler. Aortic Valve: No evidence of hemodynamically significant aortic stenosis by Doppler.Aortic cusps appear mildly sclerotic. Trileaflet aortic valve. Trace aortic valveregurgitation. Tricuspid Valve: Normal appearance of the tricuspid valve. Mild pulmonary hypertensionbased on right ventricular systolic pressure. Estimated peak RVSP is 43 mmHg. Mildtricuspid regurgitation. Pulmonic Valve: Normal appearance of the pulmonic valve. No pulmonic stenosis. Moderatepulmonic regurgitation. Pericardium: Normal pericardium with no significant pericardial effusion. There is ananterior echo free space consistent with epicardial fat pad. Aorta: Normal aortic root. Mild aortic root calcification. IVC: Normal size and normal respiratory collapse consistent with normal rightatrial pressure (<5 mmHg). CONCLUSIONS: Normal left ventricular systolic function. No focal wall motionabnormalities. Normal left ventricular size. Mild concentric left ventricular hypertrophy.Impaired diastolic relaxation Grade I. Ejection fraction is measured at 74 %. EjectionFraction is visually estimated to be 70-75 %. There is mild enlargement of left atrium. Mild pulmonary hypertension based on right ventricular systolic pressure.Estimated peak RVSP is 43 mmHg. Mild tricuspid regurgitation. Moderate pulmonic regurgitation. Normal sinus rhythm. APCs. Electronically Signed By: Jewel Wolfe MD 10/02/2024 3:53:19 PM CDT Angelo Medellin NP CV ECHO PROCEDURES Final Resu lt * eGFR (10/02/2024 12:07 PM CDT) eGFR 61 >=60 mL/min/1. 73 m2 Comment: Interpretive Data Reference Interval Normal >/= 90 mL/min/1.73m2 Mildly decreased* 60 - 89 mL/min/1.73m2 Mildly to moderately decreased 45 - 59 mL/min/1.73m2 Moderately to severely decreased 30 - 44 mL/min/1.73m2 Severely decreased 15 - 29 mL/min/1.73m2 Kidney Failure < 15 mL/min/1.73m2 *Relative to young adult level Estimated glomerular filtration rate is determined by the 2020 CKD-EPI equation recommended by the National Kidney Foundation (A Unifying Approach to GFR Estimation: Recommendations of the NKF-ASK Task Force on Reassessing the Inclusion of Race in Diagnosing Kidney Disease, JASN 202). The CKD-EPI equation should not be used for patients with unstable renal function and has not been validated in children and those over 70. Current interpretive data was last reviewed 2021. Blood 10/02/2024 12:0 7 PM CDT 10/02/2024 9:15 PM CDT us Angelo Medellin NP LAB BLOOD ORDERABLES Final Re sult [facility] [address] [place] [address] * (ABNORMAL) Vitamin B12 (10/02/2024 12:07 PM CDT) Vitamin B12 2,310(H) 230 - 1,250 pg/mL Blood 10/02/2024 12:0 7 PM CDT 10/02/2024 9:15 PM CDT Angelo Medellin NP LAB BLOOD ORDERABLES Final Re sult [facility] [address] [address] Department [place] [address] * (ABNORMAL) Renal function panel (10/02/2024 12:07 PM CDT) Sodium 137 135 - 145 mmol/L Potassium, pl 5.1(H) 3.3 - 4.9 mmol/L [facility] Chloride 101 97 - 110 mmol/L [facility] CO2 26 22 - 32 mmol/L [facility] Anion gap 10 2 - 15 mmol/L [facility] BUN 23 6 - 25 mg/dL [facility] Creatinine 0.95 0.60 - 1.10 mg/dL [facility] Glucose 127 70 - 199 mg/dL [facility] Comment: Interpretive Data Fasting glucose >/= 126 [...] 2022. Calcium 9.3 8.5 - 10.3 mg/dL [facility] Phosphorus, pl 4.0 2.3 - 4.5 mg/dL [facility] Albumin 4.3 3.5 - 5.0 g/dL [facility] Blood 10/02/2024 12:0 7 PM CDT 10/02/2024 9:15 PM CDT Angelo Medellin [facility] LAB BLOOD ORDERABLES Final Re sult Performing Organization Address [facility] de Phone Number [facility] [id number] [address] Department of Laboratories [place], [place] [id number] * (ABNORMAL) eGFR (09/05/2024 10:41 AM CDT) eGFR 59(L) >=60 mL/min/1. 73 m2 Comment: Interpretive Data Reference Interval Normal >/= 90 mL/min/1.73m2 Mildly decreased* 60 - 89 mL/min/1.73m2 Mildly to moderately decreased 45 - 59 mL/min/1.73m2 Moderately to severely decreased 30 - 44 mL/min/1.73m2 Severely decreased 15 - 29 mL/min/1.73m2 Kidney Failure < 15 mL/min/1.73m2 *Relative to young adult level Estimated glomerular filtration rate is determined by the 2020 CKD-EPI equation recommended by the National Kidney Foundation (A Unifying Approach to GFR Estimation: Recommendations of the NKF-ASK Task Force on Reassessing the Inclusion of Race in Diagnosing Kidney Disease, JASN 2020). The CKD-EPI equation should not be used for patients with unstable renal function and has not been validated in children and those over 70. Current interpretive data was last reviewed 2021. Blood 09/05/2024 10:4 1 AM CDT 09/05/2024 9:36 PM CDT Angelo Medellin [facility] LAB BLOOD ORDERABLES Final Re sult Performing Organization Address City/[facility]/ZIP Co de Phone Number [facility] [place] [phone] [address] Department [place] [address] * Differential, auto (09/05/2024 10:41 AM CDT) Neutrophil abs 3.96 1.50 - 6.50 K/cumm Imm gran abs 0.03 0.00 - 0.10 K/cumm [facility] Lymphocyte abs 1.22 0.80 - 3.30 K/cumm [facility] Monocyte abs 0.64 0.20 - 0.80 K/cumm [facility] Eosinophil abs 0.46 0.00 - 0.50 K/cumm [facility] Basophil abs 0.05 0.00 - 0.10 K/cumm [facility] Neutrophil pct 62.2 % [facility] Comment: Interpretive Data Percent cell count reference ranges are not reported, since discordance with absolute values may lead to misinterpretation of CBC data. Current Interpretive Data was last revised on 2017. Imm gran pct 0.5 % [facility] Comment: Interpretive Data Percent cell count reference ranges are not reported, since discordance with absolute values may lead to misinterpretation of CBC data. Current Interpretive Data was last revised on 2017. Lymphocyte pct 19.2 % [facility] Comment: Interpretive Data Percent cell count reference ranges are not reported, since discordance with absolute values may lead to misinterpretation of CBC data. Current Interpretive Data was last revised on 2017. Monocyte pct 10.1 % [facility] Comment: Interpretive Data Percent cell count reference ranges are not reported, since discordance with absolute values may lead to misinterpretation of CBC data. Current Interpretive Data was last revised on 2017. Eosinophil pct 7.2 % [facility] Comment: Interpretive Data Percent cell count reference ranges are not reported, since discordance with absolute values may lead to misinterpretation of CBC data. Current Interpretive Data was last revised on 2017. Basophil pct 0.8 % [facility] Comment: Interpretive Data Percent cell count reference ranges are not reported, since discordance with absolute values may lead to misinterpretation of CBC data. Current Interpretive Data was last revised on 2017. Blood 09/05/2024 10:4 1 AM CDT 09/05/2024 9:34 PM CDT us Angelo Medellin NP LAB BLOOD ORDERABLES Final Re sult [facility] [place] [address] [address] Department [place] [address] * Thyroid Function Bonner (09/05/2024 10:41 AM CDT) TSH 2.95 0.30 - 4.20 mcIUnit/mL Blood 09/05/2024 10:4 1 AM CDT 09/05/2024 9:34 PM CDT Angelo Romario [facility] LAB BLOOD ORDERABLES Final Re sult Performing Organization Address [facility] de Phone Number [facility] [address] [address] [facility] [place] [address] * (ABNORMAL) Iron profile w/ IBC (09/05/2024 10:41 AM CDT) Pathologist [facility] Iron 51 35 - 145 mcg/dl TIBC 297 250 - 400 mcg/dL [facility] Transferrin saturation 17(L) 20 - 50 % [facility] Blood 09/05/2024 10:4 1 AM CDT 09/05/2024 9:34 PM CDT Angelo Romario [facility] LAB BLOOD ORDERABLES Final Re sult Performing Organization Address [facility] de Phone Number [facility] [place] [address] [address] [place] [address] * (ABNORMAL) CBC with auto differential (09/05/2024 10:41 AM CDT) Pathologist [facility] WBC 6.36 3.80 - 9.90 K/cumm Hgb 11.6(L) 11.9 - 15.5 g/dL [facility] Hct 38.5 35.6 - 45.5 % [facility] Plt 241 150 - 400 K/cumm [facility] MPV 11.2 9.1 - 12.3 fL [facility] RBC 3.88(L) 3.90 - 5.20 M/cumm [facility] MCV 99.2(H) 81.3 - 96.4 fL [facility] MCH 29.9 27.1 - 33.3 pg [facility] MCHC 30.1(L) 32.3 - 35.7 g/dL [facility] RDW CV 13.9 11.1 - 14.9 % [facility] RDW SD 51.0(H) 35.7 - 48.1 fL [facility] NRBC abs 0.00 0.00 - 0.01 K/cumm [facility] Blood 09/05/2024 10:4 1 AM CDT 09/05/2024 9:34 PM CDT Angelo Medellin [facility] LAB BLOOD ORDERABLES Final Re sult Performing Organization Address [facility] de Phone Number [facility] [address] [address] [place] [address] * Hemoglobin A1c (09/05/2024 10:41 AM CDT) Hgb A1C 5.3 4.0 - 5.6 % Estimated Average Glucose 105 mg/dL [facility] Comment: The ADA recommends reporting an estimated Average Glucose (eAG) with all Hemoglobin A1c results using the equation derived from a study of 507 normal and diabetic adults. Minority populations were underrepresented and children were not included. (Diabetes Care 31:1936-9319, 2008). The eAG is not equivalent to a fasting glucose. Blood 09/05/2024 10:4 1 AM CDT 09/05/2024 9:34 PM CDT Angelo Medellin [facility] LAB BLOOD ORDERABLES Final Re sult Performing Organization Address [facility] Co de Phone Number [facility] [address] [address] [place] [address] * Ferritin (09/05/2024 10:41 AM CDT) Pathologist [facility] Ferritin 51 15 - 150 ng/mL Blood 09/05/2024 10:4 1 AM CDT 09/05/2024 9:34 PM CDT Angelo Medellin [facility] LAB BLOOD ORDERABLES Final Re sult Performing Organization Address City/[facility]/ZIP Co de Phone Number [facility] [address] [address] [place] [address] * Lipid panel (09/05/2024 10:41 AM CDT) Cholesterol 157 30 - 199 mg/dL Comment: Interpretive Data Ages < or = 19 years Acceptable: <170 mg/dL Borderline high: 170-199 mg/dL High: >or= 200 mg/dL Ages > or = 20 years Desirable: <200 mg/dL Borderline high: 200-239 mg/dL High: >or= 240 mg/dL Literature References: 1. Expert Panel on Integrated Guidelines for Cardiovascular Health and Risk Reduction in Children and Adolescents. Pediatrics 2011;128:S213 2. NCEP Expert Panel. Circulation 2004;110:227 Current Interpretive Data was last revised on 2018. Triglycerides 96 <=149 mg/dL [facility] Comment: Interpretive Data Ages < or = 9 years Acceptable: <75 mg/dL Borderline high: 75-99 mg/dL High: >or= 100 mg/dL Ages 10 to 20 years Acceptable: <90 mg/dL Borderline high: 90-129 mg/dL High: >or= 130 mg/dL Ages > or = 20 years Desirable: <150 mg/dL Borderline high: 150-199 mg/dL High: 200-499 mg/dL Very high: >or= 499 mg/dL Literature References: 1. Expert Panel on Integrated Guidelines for Cardiovascular Health and Risk Reduction in Children and Adolescents. Pediatrics 2011;128:S213 2. NCEP Expert Panel. Circulation 2004;110:227 Current Interpretive Data was last revised on 2018. HDL 56 >=40 mg/dL [facility]STIE Comment: Interpretive Data Ages < or = 19 years Acceptable: >45 mg/dL Borderline low: 40-45 mg/dL Low: <40 mg/dL Ages > or = 20 years Desirable: >or= 60 mg/dL Low: <40 mg/dL Literature References: 1. Expert Panel on Integrated Guidelines for Cardiovascular Health and Risk Reduction in Children and Adolescents. Pediatrics 2011;128:S213 2. NCEP Expert Panel. Circulation 2004;110:227 Current Interpretive Data was last revised on 2018. LDL, calculated 83 <=129 mg/dL [facility] Comment: Interpretive Data Ages < or = 19 years Acceptable: <110 mg/dL Borderline high: 110-129 mg/dL High: >or= 130 mg/dL Ages > or = 20 years Optimal: <100 mg/dL Near optimal: 100-129 mg/dL Borderline high: 130-159 mg/dL High: >160 mg/dL Calculated using the Zachary LDL-C estimating equation. This equation was implemented on 2024. Prior to this date LDL-C was estimated using the Friedewald equation. Literature References: 1. Expert Panel on Integrated Guidelines for Cardiovascular Health and Risk Reduction in Children and Adolescents. Pediatrics 2011;128:S213 2. NCEP Expert Panel. Circulation 2004;110:227 3. Zachary Reddy et al. FRANCOIS Cardiol. 2020 October 02;5(5):540-548. doi: 10.1001/[email or web address] Current Interpretive Data was last revised on 2024. Non-HDL Cholesterol 101 mg/dL [facility]ST[facility] Comment: Interpretive Data Ages < or = 19 years Acceptable: <120 mg/dL Borderline high: 120-144 mg/dL High: >145 mg/dL Ages > or = 20 years When triglycerides are >200 mg/dL, Non-HDL cholesterol is a secondary target of therapy with treatment goals that are 30 mg/dL greater than the LDL cholesterol target. Literature References: 1. Expert Panel on Integrated Guidelines for Cardiovascular Health and Risk Reduction in Children and Adolescents. Pediatrics 2011;128:S213 2. NCEP Expert Panel. Circulation 2004;110:227 Current Interpretive Data was last revised on 2018. Chol/HDL ratio 3 [facility]ST[facility] Blood 09/05/2024 10:4 1 AM CDT 09/05/2024 9:34 PM CDT Narrative [facility] - 09/05/2024 9:59 PM CDT Has the patient been fasting for 8 hours or more?->Yes us Angelo Medellin NP LAB BLOOD ORDERABLES Final Re sult [facility] [place] [address] [address] Department [place] [address] * (ABNORMAL) Comprehensive metabolic panel (09/05/2024 10:41 AM CDT) Sodium 139 135 - 145 mmol/L Potassium, pl 5.6(H) 3.3 - 4.9 mmol/L [facility] Chloride 102 97 - 110 mmol/L [facility] CO2 28 22 - 32 mmol/L [facility] Anion gap 9 2 - 15 mmol/L [facility] BUN 21 6 - 25 mg/dL [facility] Creatinine 0.97 0.60 - 1.10 mg/dL [facility] Glucose 114 70 - 199 mg/dL [facility] Comment: Interpretive Data Fasting glucose >/= 126 [...] interpretive data was last revised 2022. Calcium 8.9 8.5 - 10.3 mg/dL [facility] Bilirubin, total 0.2 0.1 - 1.2 mg/dL [facility] Protein, pl 7.1 6.5 - 8.5 g/dL [facility] Albumin 3.9 3.5 - 5.0 g/dL [facility] Alk phos 107 40 - 130 Units/L [facility] ALT 17 7 - 45 Units/L [facility] AST 31 10 - 45 Units/L [facility] Blood 09/05/2024 10:4 1 AM CDT 09/05/2024 9:34 PM CDT Angelo Medellin R[facility] LAB BLOOD ORDERABLES Final Re s[facility] [address] [address] Department [place] [address] from Last 3 Months Insurance MEDICARE [facility] MEDICARE SUPPLEMENT Care Teams Mold Filler Relationship Specialty Start Date End Date Angelo Medellin NP [address] [facility] [address] [place] [address] PCP - General Internal Medicine 09/04/24
--- OUTSIDE RECORDS SUMMARY | 2024-11-10 14:46 | XMS_ITS | Clinical Summary ---
Author Organization [facility] Address [address] [place] [address] Care Team Providers Care Box Worker Name Role Phone JaswinderAngelo tristan KATE Primary Care Provider [phone] Allergies Active Allergy Reactions Criticality Noted Date [...] mcg total) by mouth daily Thyroid Function [place]; Future Chronic rhinitis 09/04/2024 Assessment & Plan [...] & Plan (09/05/2024 7:56 AM CDT): Orders: cxwcucqria-heKBROOet-gkecdayhc 40-5-25 mg tablet; Take 1 tablet by [...] Anxiety 09/04/2024 Arthritis 10/03/2024 Thyroid disease 09/04/2024 Encounters Date Type Department Care Team Description 11/06/2024 3:[address] [facility] OP Physical Therapy [address] [place] [id number] Richa Winslow PTA Acute pain of left shoulder (Primary Dx) 10/31/2024 1:[address] [facility] OP Physical Therapy [address] [place] [address] Mally Rosenbaum PT Acute pain of left shoulder (Primary Dx); Neck pain 10/31/2024 Plan [address] [facility] OP Physical Therapy [address] [place] [address] 10/30/2024 Orders Only [facility] Primary Care at [address] [phone] Angelo Medellin NP Dizzinesses (Primary Dx); Postural dizziness with presyncope 10/22/2024 Orders Only [facility] Primary Care at [address] [phone] Angelo Medellin NP Memory changes (Primary Dx) 10/20/2024 Telephone [facility] Primary Care at [address] [phone] Consuelo Samuel MA Neurology Referral; Medical Question/Miscellaneou s 10/10/2024 Documentation [facility] Primary Care at [address] [phone] Angelo Medellin NP 10/02/2024 1:30 PM CDT Ancillary Procedure [facility] Cardiology at [address] [place] [phone] SOB (shortness of breath); Bilateral leg edema 10/02/2024 12:07 PM CDT - 10/02/2024 11:59 PM CDT Hospital Encounter [address] [address] Iron deficiency anemia, unspecified iron deficiency anemia type; Hyperkalemia; Decreased GFR Discharge Disposition: Discharge to home or self care 10/02/2024 12:00 PM CDT Lab [facility] Outpatient Lab at [address] [phone] Depression (Primary Dx); Hyperlipidemia 10/02/2024 11:00 AM CDT Office Visit [facility] Primary Care at [address] [phone] Angelo Medellin NP Morbid obesity with BMI [...] (restless legs syndrome); SOB (shortness of breath) 10/02/2024 Results Follow-Up [facility] Primary Care at [address] [phone] Angelo Medellin NP Transthoracic Echo (TTE) Complete W Doppler/CF 10/02/2024 Telephone [facility] Primary Care at [address] [phone] Angelo Medellin NP 09/08/2024 Results Follow-Up [facility] Primary Care at [address] [phone] Angelo Medellin NP Ferritin, Thyroid Function [place], Iron profile w/ IBC, Additional followed-up results: 6 09/05/2024 10:45 AM CDT Lab [facility] Outpatient Lab at [address] [phone] Morbid obesity with BMI of 45.0-49.9, adult (HCC) (Primary Dx); Iron deficiency anemia; Hypertension, essential 09/05/2024 10:41 AM CDT - 09/05/2024 11:59 PM CDT Hospital Encounter [address] [address] Iron deficiency anemia, unspecified iron deficiency anemia type; RLS (restless legs syndrome); Acquired hypothyroidism; Mixed hyperlipidemia; Hyponatremia; Prediabetes Discharge Disposition: Discharge to home or self care 09/04/2024 3:30 PM CDT Office Visit [facility] Primary Care at [address] [phone] Angelo Medellin NP Morbid obesity with BMI [...] leg edema; Prediabetes from Last 3 Months Immunizations Immunization Administration Dates Next Due Influenza, Quad, Adjuvantated, Intramuscular ,06/07/2021 Influenza, Quadrivalent, Hig h Dose, Preservative Free, Intrr 04/16/2022 Influenza, Trivalent, Adjuvanted, Intramuscular 02/26/2024,02/28/2018 Influenza, Trivalent, High D ose, Split, Preservative Free, Intramuscular 02/28/2019,03/05/2017 Pneumococcal Conjugate PCV 13 03/04/2019 RSV Vaccine, Pref, Recombina nt, Subunit, Adjuvanted, PF, IM (Arexvy) 05/02/2023 Surgical History Surgery Date Site/Laterality Comments THYROID SURGERY partial removal TUBAL LIGATION Medical History Medical History Date Comments Arthritis Depression Anxiety Hyperlipidemia Thyroid disease GERD (gastroesophageal reflux disease) Asthma Osteoporosis Family History Medical History Relation Name Comments No Known Problems Father No Known Problems Mother Relation Name Status Comments Father Mother Social History Tobacco Use Types Packs/Day Years [...] on file 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[employer] Gender Identity Not on file Sexual Orientation Not on file Obstetrics History Last Filed Vital Signs Vital Sign Reading [...] 10/02/2024 10:59 AM CDT Plan of Treatment Health Maintenance Due Date Last Done Comments DTaP/Tdap/Td Vaccine (1 - Tdap) 11/27/1956 Zoster Vaccine (1 of 2) 11/27/1993 Pneumococcal vaccine 65+ (2 of 2 - PPSV23) 04/29/2019 03/04/2019 Covid-19 Vaccine ( season) 2025 05/02/2023, 04/16/2022, 03/07/2021, Additional history exists Postponed from 02/03/2024 (Patient declined, but will receive in the future) Depression Screening 10/02/2025 10/02/2024, 09/05/19 25 Fall Risk Assessment 10/02/2025 10/02/2024, 09/05/19 25 Well Visit 65+ 10/02/2025 10/02/2024 Influenza Vaccine Completed 02/26/2024, , 04/16/2022, Additional history exists Hepatitis B Screening Discontinued Osteoporosis Screening-Bone Density Scan Discontinued Procedures Procedure Name Priority Date/Time Associated Diagnosis [...] PM CDT Narrative 10/02/2024 3:54 PM CDT [facility] Cardiology [address] , [address], [place] [address] P:[phone] P:[phone] Echocardiographic Report Patient Name: BRANDON CUNNINGHAM : [...] FINDINGS: Interpretation Site: Exam was interpreted at [facility]. Left Ventricle: Normal left ventricular systolic function. [...] Procedure Note Jewel Wolfe MD - 10/02/2024 [facility]iology [address], [address], [place] [address] P:[phone] P:[phone] Echocardiographic Report Patient Name: BRANDON CUNNINGHAM : 1945 Study Date: 10/02/2024 1:29:04 PM Gender: F Tech: Location: [facility] Ref Provider: ANGELO MEDELLIN Height(Cm): 152 BSA: [...] - 0.90 ] MV E Peak Jabier 0.66m/s [ 0.60 - 1.30 ] IVSd [...] FINDINGS: Interpretation Site: Exam was interpreted at [facility]. Left Ventricle: Normal left ventricular systolic function. [...] Jewel Wolfe MD 10/02/2024 3:53:19 PM CDT us Angelo Medellin NP CV ECHO PROCEDURES Final [...] 7 PM CDT 10/02/2024 9:15 PM CDT [facility] [employer] LAB BLOOD ORDERABLES Final Re sult Performing Organization Address City/[facility]/ZIP Co de Phone Number KENNETH [address] [place] [address] * (ABNORMAL) Vitamin B12 (10/02/2024 12:07 PM CDT) Pathologist [facility] Vitamin B12 2,310(H) 230 - 1,250 pg/mL Blood 10/02/2024 12:0 7 PM CDT 10/02/2024 9:15 PM CDT [facility] [employer] SCUL[employer] LAB BLOOD ORDERABLES Final Re sult KENNETH [address] [place] [address] * (ABNORMAL) Renal function panel (10/02/2024 12:07 PM CDT) Sodium 137 135 - 145 mmol/L Potassium, pl 5.1(H) 3.3 - 4.9 mmol/L [facility] Chloride 101 97 - 110 mmol/L [facility] CO2 26 22 - 32 mmol/L [facility] Anion gap 10 2 - 15 mmol/L [facility] BUN 23 6 - 25 mg/dL [facility] Creatinine 0.95 0.60 - 1.10 mg/dL [facility] Glucose 127 70 - 199 mg/dL [facility] Comment: Interpretive Data Fasting glucose >/= 126 [...] 2022. Calcium 9.3 8.5 - 10.3 mg/dL [facility] Phosphorus, pl 4.0 2.3 - 4.5 mg/dL [facility] Albumin 4.3 3.5 - 5.0 g/dL [facility] Blood 10/02/2024 12:0 7 PM CDT 10/02/2024 9:15 PM CDT Angelo Medellin NP LAB BLOOD ORDERABLES Final Re sult [facility] [address] [place] [address] * (ABNORMAL) eGFR (09/05/2024 10:41 AM CDT) [...] 1 AM CDT 09/05/2024 9:36 PM CDT us Angelo Medellin NP LAB BLOOD ORDERABLES Final Re sult [facility] [address] [place] [address] * Differential, auto (09/05/2024 10:41 AM CDT) Neutrophil abs 3.96 1.50 - 6.50 K/cumm Imm gran abs 0.03 0.00 - 0.10 K/cumm [facility] Lymphocyte abs 1.22 0.80 - 3.30 K/cumm [facility] Monocyte abs 0.64 0.20 - 0.80 K/cumm [facility] Eosinophil abs 0.46 0.00 - 0.50 K/cumm [facility] Basophil abs 0.05 0.00 - 0.10 K/cumm [facility] Neutrophil pct 62.2 % [facility] Comment: Interpretive Data Percent cell count reference ranges are not reported, since discordance with absolute values may lead to misinterpretation of CBC data. Current Interpretive Data was last revised on 2017. Imm gran pct 0.5 % [facility] Comment: Interpretive Data Percent cell count reference ranges are not reported, since discordance with absolute values may lead to misinterpretation of CBC data. Current Interpretive Data was last revised on 2017. Lymphocyte pct 19.2 % [facility] Comment: Interpretive Data Percent cell count reference ranges are not reported, since discordance with absolute values may lead to misinterpretation of CBC data. Current Interpretive Data was last revised on 2017. Monocyte pct 10.1 % [facility] Comment: Interpretive Data Percent cell count reference ranges are not reported, since discordance with absolute values may lead to misinterpretation of CBC data. Current Interpretive Data was last revised on 2017. Eosinophil pct 7.2 % [facility] Comment: Interpretive Data Percent cell count reference ranges are not reported, since discordance with absolute values may lead to misinterpretation of CBC data. Current Interpretive Data was last revised on 2017. Basophil pct 0.8 % [facility] CHRISTIE Comment: Interpretive Data Percent cell count reference ranges are not reported, since discordance with absolute values may lead to misinterpretation of CBC data. Current Interpretive Data was last revised on 2017. Blood 09/05/2024 10:4 1 AM CDT 09/05/2024 9:34 PM CDT us Angelo Medellin ICE SCULPTOR LAB BLOOD ORDERABLES Final Re sult Performing Organization Address City/[facility]/ZIP Co de Phone Number KENNETH [address] [place] [address] * Thyroid Function [place] (09/05/2024 10:41 AM CDT) TSH 2.95 0.30 - 4.20 mcIUnit/mL Blood 09/05/2024 10:4 1 AM CDT 09/05/2024 9:34 PM CDT Angelo Medellin NP LAB BLOOD ORDERABLES Final Re sult Performing Organization Address [facility]/ZIP Co de Phone Number KENNETH [address] [address] [place] [address] * (ABNORMAL) Iron profile w/ IBC (09/05/2024 10:41 AM CDT) Iron 51 35 - 145 mcg/dl TIBC 297 250 - 400 mcg/dL [facility] Transferrin saturation 17(L) 20 - 50 % KENNET[facility] Blood 09/05/2024 10:4 1 AM CDT 09/05/2024 9:34 PM CDT Angelo Medellin ICE SCULPTOR LAB BLOOD ORDERABLES Final Re sult [facility] [place]RISTIE [address] [place] [address] * (ABNORMAL) CBC with auto differential (09/05/2024 10:41 AM CDT) WBC 6.36 3.80 - 9.90 K/cumm Hgb 11.6(L) 11.9 - 15.5 g/dL [facility] Hct 38.5 35.6 - 45.5 % [facility] Plt 241 150 - 400 K/cumm [facility] MPV 11.2 9.1 - 12.3 fL [facility] RBC 3.88(L) 3.90 - 5.20 M/cumm [facility] MCV 99.2(H) 81.3 - 96.4 fL [facility] MCH 29.9 27.1 - 33.3 pg [facility] MCHC 30.1(L) 32.3 - 35.7 g/dL [facility] RDW CV 13.9 11.1 - 14.9 % [facility] RDW SD 51.0(H) 35.7 - 48.1 fL [facility] NRBC abs 0.00 0.00 - 0.01 K/cumm [facility] Blood 09/05/2024 10:4 1 AM CDT 09/05/2024 9:34 PM CDT Angelo Medellin ICE SCULPTOR LAB BLOOD ORDERABLES Final Re sult [facility] [place]ST[place] [address] [employer] [place], [place] [phone] * Hemoglobin A1c (09/05/2024 10:41 AM CDT) Hgb A1C 5.3 4.0 - 5.6 % Estimated Average Glucose 105 mg/dL [facility] Comment: The ADA recommends reporting an estimated Average Glucose (eAG) with all Hemoglobin A1c results using the equation derived from a study of 507 normal and diabetic adults. Minority populations were underrepresented and children were not included. (Diabetes Care 31:8605-5371, 2008). The eAG is not equivalent to a fasting glucose. Blood 09/05/2024 10:4 1 AM CDT 09/05/2024 9:34 PM CDT Angelo Sanazalea ICE SCULPTOR LAB BLOOD ORDERABLES Final Re sult Performing Organization Address [facility] de Phone Number KENNETH [address] [address] [place] [address] * Ferritin (09/05/2024 10:41 AM CDT) Ferritin 51 15 - 150 ng/mL Blood 09/05/2024 10:4 1 AM CDT 09/05/2024 9:34 PM CDT [facility] [employer] SCUL[employer]OR LAB BLOOD ORDERABLES Final Re sult Performing Organization Address [facility] Phone Number [facility] [address] [address] [place] [address] * Lipid panel (09/05/2024 10:41 AM CDT) [...] on 2018. Triglycerides 96 <=149 mg/dL [facility] CHRISTIE Comment: Interpretive Data Ages [...] 2018. LDL, calculated 83 <=129 mg/dL [facility] CHRISTIE Comment: Interpretive Data Ages [...] NCEP Expert Panel. Circulation 2004;110:227 3. Zachary Lamar al. FRANCOIS Cardiol. 2020 October 02;5(5):540-548. doi: [...] last revised on 2018. Chol/HDL ratio 3 [facility] Blood 09/05/2024 10:4 1 AM CDT 09/05/2024 9:34 PM CDT Narrative [facility] - 09/05/2024 9:59 PM CDT Has the patient been fasting for 8 hours or more?->Yes us Angelo Medellin NP LAB BLOOD ORDERABLES Final Re sult [facility] [address] [address] [place] [address] * (ABNORMAL) Comprehensive metabolic panel (09/05/2024 10:41 AM CDT) Sodium 139 135 - 145 mmol/L Potassium, pl 5.6(H) 3.3 - 4.9 mmol/L [facility] Chloride 102 97 - 110 mmol/L [facility] CO2 28 22 - 32 mmol/L [facility] Anion gap 9 2 - 15 mmol/L [facility] BUN 21 6 - 25 mg/dL [facility] Creatinine 0.97 0.60 - 1.10 mg/dL [facility] Glucose 114 70 - 199 mg/dL [facility] Comment: Interpretive Data Fasting glucose >/= 126 [...] classification and Diagnosis of Diabetes Diabetes Care 2021; 46: S19-S40. Current interpretive data was last [...] CDT 09/05/2024 9:34 PM CDT Angelo Medellin NP LAB BLOOD ORDER[place] [address] [address] [place] [address] from Last 3 Months [place] [address] [facility] MEDICARE SUPPLEMENT Care Teams Box Worker Relationship Specialty Start Date End Date Angelo Medellin NP [facility] [address] [place] [address] PCP - General Internal Medicine 09/04/24
== END 2024-11-10 13:31 | disposition home or self-care (01) ==
PROVIDERS: Visit Provider Nurse Practitioner
DX: R42 Dizziness and giddiness (principal); R55 Syncope and collapse
CPT/HCPCS: 70551

== ENCOUNTER 2025-02-28 18:40 | Emergency (ER) | payer MEDICARE, SELFPAY ==
--- NOTE | 2025-02-28 18:41 | ED.EAR ---
HPI - Ear Problem General Chief complaint: Ear Stated complaint: L hearing aid problem Time Seen by Provider: 02/28/25 18:40 Source: patient Mode of arrival: ambulatory Limitations: no limitations History of Present Illness HPI Narrative: Kayla is a 79 year old female patient presenting to the clinic today with c/o left hearing aid silicone tip stuck in her left ear canal. She reports it became stuck in her ear canal last night. Denies any ear pain or any other concerns at this time. Related Data Home Medications ?Medication ?Instructions ?Recorded ?Confirmed ?Last Taken ?Type ascorbic acid (vitamin C) 500 mg 500 mg PO DAILY 05/20/21 04/23/24 1 Day Ago History tablet ~09/13/22 multivitamin with minerals-folic 1 tablet PO DAILY 05/20/21 04/23/24 1 Day Ago History acid 0.4 mg tablet ~09/13/22 magnesium 250 mg tablet 250 mg PO DAILY 04/24/22 04/23/24 1 Day Ago History ~09/13/22 oxybutynin chloride 10 mg 10 mg PO QAM 09/14/22 04/23/24 1 Day Ago History tablet,extended release 24 hr ~09/13/22 red beet 250 mg-sour cazares 1 tablet PO DAILY 06/12/23 04/23/24 Unknown History extract 0.5 mg chewable tablet trospium 20 mg tablet 20 mg PO DAILY 04/23/24 04/23/24 Unknown History Allergies Allergy/AdvReac Type Severity Reaction Status Date / Time CJ Inhibitors AdvReac Intermediate cough Verified 04/23/24 15:27 cortisone AdvReac Mild hot flush Verified 04/23/24 15:27 prednisone AdvReac Mild Agitated Verified 04/23/24 15:27 Review of Systems Review of Systems: Pertinent positives per HPI. Patient denies any fever, chills, rash, headache, visual changes, dizziness, cough, runny nose, sore throat, shortness of breath, chest pain, palpitations, nausea, vomiting, diarrhea, constipation, abdominal pain, or any urinary issues. PMFSH Past Medical History Medical History Hypothyroidism Depression Urinary incontinence in female Helicobacter pylori (H. pylori) 1970s Peptic ulcer 1970s Gastroesophageal reflux disease Hyperlipidemia Hypertension Morbid obesity Arthritis Surgical History Surgical History History of tubal ligation History of cataract extraction History of partial thyroidectomy History of colonoscopy with polypectomy (06/2021) Per Dr. Bliss for evaluation of Hemoccult-positive stool. Notable findings include benign colon polyps, diverticulosis, and internal and external hemorrhoids. History of arthroscopy of left knee (2003) History of dilation and curettage History of arthroplasty of right knee (04/11/16) History of arthroplasty of left knee (11/30/15) Family History Family History Sibling Family history of suicide Family history of type 2 diabetes mellitus Family history of renal failure Patient's sister is , Onset Age: 65 Patient's brother is Patient's brother is in good health Father Family history of chronic obstructive pulmonary disease Mother Family history of malignant neoplasm of ovary Other Diabetes mellitus Family history of arthritis Family history of blood dyscrasia Family history of cardiovascular disease Family history of kidney disease Family history of malignant neoplasm Hypertension Social History Social History Social History: Surrogate medical decision maker: Orestes Barbosa, son. Code status: Full code. Smoking status: Never smoker Second hand tobacco smoke exposure: No Alcohol intake: never Substance use: never Lack of Transportation: No Lack of Food: Never True Current Housing: I Have Housing Concerned About Future Housing: No Difficulty Paying Gas/Electric Bills: No Difficulty Paying for Meds: No Currently Unemployed: No Education: Grade School Difficulty w/ Childcare or Family Care: No Living arrangements: alone Additional living arrangements comments: . Spiritual care concerns: No Comments At the time of my signature, I reviewed and agree with the nursing past medical, surgical, social, and family history. There is no relevant family history pertinent to the patient complaint. Exam Narrative: General: Well-developed, obese, in no apparent distress Head: Normocephalic, atraumatic Eyes: Pupils equally round and reactive to light bilaterally, EOM intact, sclera and conjunctive clear, no discharge, lids normal Ears: Silicone tipped from hearing aid stuck in the left ear canal, removed using alligator forceps successfully. TMs intact and clear, ear canals clear, no drainage, grossly hearing normal. Nose: Nares patent, no discharge, no inflammation, no sinus tenderness. Mouth: Oropharynx without lesions or masses, good dentition, MMM. Neck: Supple, trachea midline, no enlargement of anterior or posterior cervical nodes, no thyroid masses or goiter palpable. Cardio: Regular rate and rhythm, s1 and s2 normal, no murmur appreciated. Resp: Clear to auscultation bilaterally anteriorly and posteriorly, no rhonchi, rales, wheezing or rubs Course Course Emergency Course: Portions of this record may have been created with voice recognition software. Level of Care: Express Care Visit Vital Signs Vital signs: Vital Signs Temperature 36.4 C 02/28/25 18:49 Pulse Rate 83 02/28/25 18:49 Respiratory Rate 18 02/28/25 18:49 Blood Pressure 125/69 02/28/25 18:49 Pulse Oximetry 96 02/28/25 18:49 Oxygen Delivery Room Air 02/28/25 18:49 Temperature 36.4 C 02/28/25 18:49 Pulse Rate 83 02/28/25 18:49 Respiratory Rate 18 02/28/25 18:49 Blood Pressure 125/69 02/28/25 18:49 Pulse Oximetry 96 02/28/25 18:49 Oxygen Delivery Room Air 02/28/25 18:49 Vital signs reviewed Medical Decision Making MDM Narrative Medical decision making narrative: At the time of visit patient is resting comfortably on the exam table. Patient appears to be nontoxic. C/o left hearing aid silicone tip stuck in her left ear canal. She reports it became stuck in her ear canal last night. Denies any ear pain or any other concerns at this time. On exam patient has a silicone tip of hearing aid stuck in her left ear canal-alligator forceps was used to remove successfully. Plan: Patient had foreign body in the left ear canal, removed using alligator forceps successfully in the clinic today. Patient tolerated well. Supportive measures were discussed with the patient and they voiced understanding discharge instructions and agrees to treatment plan. Return precautions reviewed Differential Diagnosis Differential Diagnosis: Otitis media, otitis externa, foreign body in ear canal, decreased hearing Vital Signs Vital Signs: Vital Signs Temperature 36.4 C 02/28/25 18:49 Pulse Rate 83 02/28/25 18:49 Respiratory Rate 18 02/28/25 18:49 Blood Pressure 125/69 02/28/25 18:49 Pulse Oximetry 96 02/28/25 18:49 Oxygen Delivery Room Air 02/28/25 18:49 Temperature 36.4 C 02/28/25 18:49 Pulse Rate 83 02/28/25 18:49 Respiratory Rate 18 02/28/25 18:49 Blood Pressure 125/69 02/28/25 18:49 Pulse Oximetry 96 02/28/25 18:49 Oxygen Delivery Room Air 02/28/25 18:49 Discharge Plan Discharge Clinical Impression: Acute foreign body of left ear canal Qualifiers: Encounter type: initial encounter Qualified Code(s): T16.2XXA - Foreign body in left ear, initial encounter Patient Disposition: Home Condition: Stable Instructions: Antibiotic Form, Ear Foreign Body (ED) Additional Instructions: Foreign body removed from the left ear canal Follow-up as needed Patient Language: Bengali Prescriptions: No Action trospium 20 mg tablet 20 mg PO DAILY magnesium 250 mg tablet 250 mg PO DAILY red beet-sour cazares extract 250-0.5 mg tablet,chewable 1 tablet PO DAILY mometasone 50 mcg/actuation spray,non-aerosol 2 spray NASAL DAILY Qty: 51 2RF duloxetine 30 mg capsule,delayed release(DR/EC) 30 mg PO DAILY Qty: 90 1RF cetirizine 10 mg tablet 10 mg PO DAILY PRN (Reason: allergy symptoms) Qty: 90 1RF levothyroxine 137 mcg tablet 137 mcg PO DAILY Qty: 90 1RF ascorbic acid (vitamin C) 500 mg Tablet 500 mg PO DAILY multivit with min-folic acid 0.4 mg Tablet 1 tablet PO DAILY oxybutynin chloride 10 mg tablet extended release 24hr 10 mg PO QAM polyethylene glycol 3350 [Miralax] 17 gram Powder In Packet 17 g PO QAM Qty: 30 0RF docusate sodium 100 mg Capsule 100 mg PO Q12HR Qty: 60 0RF simvastatin 40 mg tablet 40 mg PO DAILY Qty: 90 4RF celecoxib [Celebrex] 200 mg capsule 200 mg PO DAILY PRN (Reason: pain) Qty: 90 1RF ferrous sulfate 325 mg (65 mg iron) tablet 324 mg PO BIDWM Qty: 60 5RF budesonide-formoterol [Symbicort] 160-4.5 mcg/actuation HFA aerosol inhaler 1 inh inhalation DAILY Qty: 10.2 5RF lansoprazole 30 mg capsule,delayed release(DR/EC) 30 mg PO DAILY Qty: 90 1RF Rx Instructions: TAKE 1 CAPSULE DAILY tramadol 50 mg tablet 50 mg PO Q6H PRN (Reason: pain) Qty: 60 0RF yhcqnimtne-tskzmuate-vdrizyhna 40-5-12.5 mg tablet 1 tablet PO DAILY Qty: 90 1RF gabapentin 300 mg capsule 300 mg PO QHS Qty: 14 0RF Follow-up/Referrals: UNKNOWN,DOCTOR [Non-Staff] Time of Disposition: 19:00 Quality NIHSS Nursing Documentation ED NIHSS nursing documentation: reviewed/agree
--- OUTSIDE RECORDS SUMMARY | 2025-02-28 18:42 | XMS_ITS | Clinical Summary ---
Author Organization [facility] Address [address] [place] [address] Care Team Providers Care Manager Pacu Name Role Phone JaswinderDaphne tristan KATE Primary Care Provider [phone] Allergies Active Allergy Reactions Criticality Noted Date Comments Prednisone Swelling Medium 09/04/2024 Medications trospium (SANCTURA) 20 mg tablet Take 1 tablet (20 mg total) by mouth daily Active magnesium oxide (MAG-OX) 250 mg (150.8 mg elemental) tabletIndications :hypomagnesemia Take 1 tablet (250 mg total) by mouth daily Active docusate sodium (STOOL SOFTENER ORAL) Take by mouth Active mometasone (NASONEX) 50 mcg/actuation nasal sprayIndications: Allergic Rhinitis Administer 2 sprays into each nostril daily 17 g 3 09/05/19 25 Active ferrous sulfate 325 mg (65 mg of elemental iron) tabletIndications :Iron Deficiency Anemia Take 1 tablet (325 mg total) by mouth 2 (two) times a day 90 tablet 3 09/05/19 25 Active celecoxib (CeleBREX) 200 mg capsuleIndication s:Primary osteoarthritis involving multiple joints Take 1 capsule (200 mg total) by mouth daily as needed for pain 90 capsule 3 09/05/19 25 Active cetirizine (ZyrTEC) 10 mg tabletIndications :Chronic rhinitis Take 1 tablet (10 mg total) by mouth daily 90 tablet 3 09/05/19 25 Active gabapentin (NEURONTIN) 300 mg capsuleIndication s:Restless Legs Syndrome Take 1 capsule (300 mg total) by mouth nightly 90 capsule 3 09/05/19 25 Active lansoprazole (PREVACID) 30 mg capsuleIndication s:Gastroesophagea l reflux disease without esophagitis Take 1 capsule (30 mg total) by mouth daily 90 capsule 3 10/03/19 25 Active rosuvastatin (CRESTOR) 10 mg tabletIndications :Mixed hyperlipidemia Take 1 tablet (10 mg total) by mouth daily 90 tablet 3 10/03/19 25 2025 Active levothyroxine (SYNTHROID) 137 mcg tabletIndications :Acquired hypothyroidism Take 1 tablet (137 mcg total) by mouth daily 90 tablet 3 10/03/[address] (CYMBALTA) 60 mg capsuleIndication s:Neuropathic pain Take 1 capsule (60 mg total) by mouth daily 90 capsule 3 10/03/19 25 2025 Active traMADoL (ULTRAM) 50 mg tabletIndications :Chronic midline low back pain without sciatica Take 1 tablet (50 mg total) by mouth 2 (two) times a day as needed for pain 60 tablet 2 10/03/19 25 Active olmesartan-hydroc hlorothiazide (BENICAR HCT) 40-25 mg per tabletIndications :Hypertension, essential TAKE 1 TABLET BY MOUTH EVERY DAY 90 tablet 1 02/26/20 25 Active olmesartan-hydroc hlorothiazide (BENICAR HCT) 40-25 mg per tabletIndications :Hypertension, essential Take 1 tablet by mouth daily 30 tablet 3 12/03/19 25 2024 Discontinued Active Problems Problem Noted Date Diagnosed Date Dizziness 12/02/2024 Chronic midline low back pain without sciatica [...] (restless legs syndrome) 09/04/2024 Assessment & Plan (12/02/2024 3:02 PM CDT): Assessment & Plan (09/05/2024 7:56 AM CDT): [...] 7:56 AM CDT): Orders: Hemoglobin A1c; Future Primary osteoarthritis involving multiple joints 09/04/2024 Assessment & Plan (12/02/2024 3:02 PM CDT): Assessment & Plan (10/03/2024 3:05 PM CDT): [...] Iron deficiency anemia 09/04/2024 Assessment & Plan (12/02/2024 3:02 PM CDT): Orders: CBC with auto differential; Future Assessment & Plan (09/05/2024 7:56 AM CDT): Repeat labs pending Orders: ferrous sulfate 325 mg (65 mg of elemental iron) tablet; Take 1 tablet (325 mg total) by mouth 2 (two) times a day CBC with auto differential; Future Iron profile w/ IBC; Future Ferritin; Future Acquired hypothyroidism 09/04/2024 Assessment & Plan (12/02/2024 3:02 PM CDT): Orders: Thyroid Function [place]; Future Assessment & Plan (10/03/2024 3:04 PM CDT): We will continue Synthroid 137 mcg daily. Levels are stable. Follow up in three months. SmartLink not supported outside of the Encounter Diagnoses Smart[facility]. Assessment & Plan (09/05/2024 7:56 AM CDT): We will continue Synthroid. Labs pending. Orders: levothyroxine (SYNTHROID) 137 mcg tablet; Take 1 tablet (137 mcg total) by mouth daily Thyroid Function [place]; Future Chronic rhinitis 09/04/2024 Assessment & Plan (09/05/2024 7:56 AM CDT): Continue Nasonex and Zyrtec daily. Orders: mometasone (NASONEX) 50 mcg/actuation nasal spray; Administer 2 sprays into each nostril daily cetirizine (ZyrTEC) 10 mg tablet; Take 1 tablet (10 mg total) by mouth daily Hypertension, essential 09/04/2024 Assessment & Plan (12/02/2024 3:02 PM CDT): Orders: Comprehensive metabolic panel; Future Albumin Creatinine Ratio, Urine; Future olmesartan-hydrochlorothiazide (BENICAR HCT) 40-25 mg per tablet; Take 1 tablet by mouth daily Assessment & Plan (10/03/2024 3:01 PM CDT): [...] & Plan (09/05/2024 7:56 AM CDT): Orders: ramvxnnrhu-tjSWNNKst-lagongprb 40-5-25 mg tablet; Take 1 tablet by [...] Problem Noted Date Diagnosed Date Resolved Date Palpitations 10/03/2024 12/02/2024 Assessment & Plan (10/03/2024 3:04 PM CDT): EKG and echo pending Recurrent major depression 10/02/2024 0 10/03/2024 Bilateral leg edema 09/04/2024 10/04/19 25 Assessment & Plan (09/05/2024 7:56 AM CDT): Echo pending. Orders: Transthoracic Echo (TTE) Complete W Doppler/CF; Future SOB (shortness of breath) 09/04/2024 Assessment & Plan (10/03/2024 3:05 PM CDT): Intermittent shortness of breath. Echo pending today. Assessment & Plan (09/05/2024 7:56 AM CDT): Echo pending Orders: Transthoracic Echo (TTE) Complete W Doppler/CF; Future Hyponatremia 09/04/2024 12/02/2024 Assessment & Plan (10/03/2024 3:01 PM CDT): Sodium levels have normalized. We will continue to monitor. Assessment & Plan (09/05/2024 7:56 AM CDT): Repeat labs pending Orders: Comprehensive metabolic panel; Future Anxiety 09/04/2024 Arthritis 10/03/2024 Thyroid disease 09/04/2024 Encounters Date Type Department Care Team Description 12/12/2024 1:30 PM CDT Clinical Support [facility] [address] [address] Blood pressure check (Primary Dx) 12/09/2024 12:[address] [facility] OP Physical Therapy [address] [place] [id number] Mally Rosenbaum PT Acute pain of left shoulder (Primary Dx); Neck pain 12/08/2024 2:[address] [facility] OP Physical Therapy [address] [place] [id number] Richa Winslow PTA Acute pain of left shoulder (Primary Dx) 12/02/2024 1:30 PM CDT Office Visit [facility] [address] [address] Daphne Doss NP Morbid obesity with BMI of 40.0-44.9, adult (HCC) (Primary Dx); Hypertension, essential; Other iron deficiency anemia; Acquired hypothyroidism; RLS (restless legs syndrome); Primary osteoarthritis involving multiple joints 12/02/2024 Orders Only [facility] [address] [address] Daphne Doss NP Hypertension, essential 12/01/2024 2:[address] 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 Acute pain of left shoulder (Primary Dx); Neck pain from Last 3 Months Immunizations Immunization Administration [...] disease GERD (gastroesophageal reflux disease) Asthma Osteoporosis Hyponatremia 09/04/2024 Palpitations 10/03/2024 Family History Medical History Relation Name Comments [...] on file Legal Sex Female 6:34 PM [employer] Gender Identity Not on file Sexual Orientation Not on file Obstetrics History Last Filed Vital Signs Vital Sign Reading Time Taken Comments Blood Pressure 128/70 12/12/2024 1:25 PM CDT Pulse 65 12/02/2024 1:19 PM CDT Temperature 36.6 C (97.8 F) 12/02/2024 1:19 PM CDT Respiratory Rate 16 12/02/2024 1:19 PM CDT Oxygen Saturation 99% 12/02/2024 1:19 PM CDT Inhaled Oxygen Concentration - - Weight 107.5 kg (237 lb) 12/02/2024 1:19 PM CDT Height 154.9 cm (5' 1) 12/02/2024 1:19 PM CDT Body Mass Index 44.78 12/02/2024 1:19 PM CDT Plan of Treatment Health Maintenance Due Date Last Done Comments DTaP/Tdap/Td Vaccine (1 - Tdap) [birth year]27/1956 Zoster Vaccine (1 of 2) 11/27/1993 Pneumococcal vaccine 65+ (2 of 2 - PPSV23, PCV20, or PCV21) 04/29/2019 03/04/2019 Covid-19 Vaccine (5 - 2024-2 6 season) 2025 05/02/2023, 04/16/2022, 03/07/2021, Additional history exists Influenza Vaccine (#1) 2025 , 05/02/2023, 04/16/2022, Additional history exists Depression Screening 10/02/2025 10/02/2024, 09/05/19 25 Fall Risk Assessment 10/02/2025 10/02/2024, 09/05/19 25 Well Visit 65+ 10/02/2025 10/02/2024 Hepatitis B Screening Discontinued Osteoporosis Screening-Bone Density Scan Discontinued Insurance MEDICARE [facility] MEDICARE SUPPLEMENT Care Teams Manager Pacu Relationship Specialty Start Date End Date Daphne Doss NP [address] [facility] [address] [place] [address] PCP - General Internal Medicine 09/04/24
--- OUTSIDE RECORDS SUMMARY | 2025-02-28 18:42 | XMS_ITS | Clinical Summary ---
Author Organization [facility] Address [facility] [place] [address] Care Team Providers Care Conflict Resolution Professional Name Role Phone Unavailable Primary Care Provider Unavailabl e Social History Tobacco Use Types Packs/Day Years Used Date Smoking Tobacco: Never Assessed Comments Unknown Sex and Gender Information Value Date Recorded Sex Assigned at Not on file Legal Sex Female 4:10 PM CDT Gender Identity Not on file Sexual Orientation Not on file Plan of Treatment Health Maintenance Due Date Last Done Comments DTaP, Tdap and Td Vaccines ( 1 - Tdap) 11/27/1962 Zoster Vaccines (1 of 2) 11/27/1993 Dexa Scan (General) 11/27/2008 RSV Immunization or 60+ Years (1 - 1-dose 75+ series) 11/27/2018 Pneumococcal Vaccine: 50+ Ye ars (2 of 2 - PPSV23) 03/04/2020 03/04/2019 COVID-19 Vaccine (2 - 2024-2 6 season) 2025 07/24/2020 Meningococcal B Vaccine Aged Out No l onger eligible based on patient's age to complete this topic Meningococcal Vaccine Aged Out No bryant jazmín eligible based on patient's age to complete this topic RSV Immunizations Under 20 Months Aged Out No longer eligible based on patient's age to complete this topic
[2025-02-28 18:49] VITALS: BP 125/69; PULSE 83; RESP 18; TEMP 36.4; O2SAT 96
== END 2025-02-28 19:06 | disposition home or self-care (01) ==
PROVIDERS: Emergency Provider Nurse Practitioner Family; PCP Nurse Practitioner
DX: T16.2XXA Foreign body in left ear, initial encounter (principal); W44.G1XA Audio device entering into or through a natural orifice, initial encounter; E03.9 Hypothyroidism, unspecified; I10 Essential (primary) hypertension; E78.5 Hyperlipidemia, unspecified; E66.01 Morbid (severe) obesity due to excess calories; Z68.37 Body mass index [BMI] 37.0-37.9, adult; M19.90 Unspecified osteoarthritis, unspecified site; Z90.89 Acquired absence of other organs; Z96.653 Presence of artificial knee joint, bilateral
CPT/HCPCS: 69200; 99212; G0463